=== PATIENT | female | born 1985 | race Caucasian/White ===

== ENCOUNTER 2016-02-13 16:06 | Emergency (ER) | payer OTHER ==
[2016-02-13] MEDS ORDERED: IBUPROFEN 600 MG TAB PO STA (17:14)
[2016-02-13] MEDS ORDERED: PHENAZOPYRIDINE 200 MG TAB PO STA (17:14)
--- NOTE | 2016-02-13 17:31 | ED ---
Female Urogenital HPI - General Chief complaint: Urogenital Stated complaint: Poss UTI Time Seen by Provider: 02/13/16 17:09 Source: patient, RN notes reviewed Mode of arrival: ambulatory Limitations: no limitations - History of Present Illness Initial comments: 31-year-old female presents to emergency room chief complaint of dysuria. Patient states she's had this for the past 2 days. Please send that she urinates she has pain. Patient states she has noticed some blood in the urine. Patient admits to history case and specifically feel like that. Patient states she has some bilateral low back pain which have any high flank pain or nausea vomiting. Patient states she has had a decreased appetite when the pain started. Patient states it feels different than her kidney stones. Patient denies any vaginal discharge. Patient states that she was concerned due to the pain and discomfort so she thought that she should be seen. Patient denies any recent fever, chills, shortness of breath, chest pain, back pain, abdominal pain , nausea vomiting, numbness or tingling, constipation or diarrhea, headaches or visual changes, or any other current symptoms. Last Menstrual Period: 01/26/16 - Related Data Home Medications Medication Instructions Recorded Confirmed OXcarbazepine [Trileptal] 600 mg PO BID 03/01/15 02/13/16 traZODone HCL [Desyrel] 100 mg PO HS 05/02/15 02/13/16 hydrOXYzine PAMOATE [Vistaril] 100 mg PO BID 02/13/16 02/13/16 Previous Rx's Medication Instructions Recorded Ciprofloxacin HCl [Cipro] 500 mg PO Q12HR #14 tablet 02/13/16 Ibuprofen [Motrin] 600 mg PO Q6HR PRN #20 tab 02/13/16 Phenazopyridine HCl [Pyridium] 100 mg PO TID 3 Days 02/13/16 Allergies Allergy/AdvReac Type Severity Reaction Status Date / Time Bleach (Sodium Hypochlorite) Allergy Rash/Hives Verified 02/13/16 17:18 milk Allergy Unknown Verified 02/13/16 17:18 Review of Systems ROS Statement: Those systems with pertinent positive or pertinent negative responses have been documented in the HPI. ROS Other: All systems not noted in ROS Statement are negative. Past Medical History Past Medical History: GERD/Reflux Additional Past Medical History / Comment(s): murmur, RA, back pain History of Any Multi-Drug Resistant Organisms: None Reported Past Surgical History: Adenoidectomy, Tonsillectomy, Tubal Ligation Additional Past Surgical History / Comment(s): oopherectomy Past Psychological History: Anxiety, Bipolar, Depression Smoking Status: Current every day smoker Past Alcohol Use History: Occasional Past Drug Use History: Marijuana General Exam Limitations: no limitations General appearance: alert, in no apparent distress Head exam: Present: atraumatic, normocephalic, normal inspection Eye exam: Present: normal appearance, PERRL, EOMI. Absent: scleral icterus, conjunctival injection, periorbital swelling ENT exam: Present: normal exam, mucous membranes moist Neck exam: Present: normal inspection. Absent: tenderness, meningismus, lymphadenopathy Respiratory exam: Present: normal lung sounds bilaterally. Absent: respiratory distress, wheezes, rales, rhonchi, stridor Cardiovascular Exam: Present: regular rate, normal rhythm, normal heart sounds. Absent: systolic murmur, diastolic murmur, rubs, gallop, clicks GI/Abdominal exam: Present: soft, tenderness (Over the suprapubic area), normal bowel sounds, other (no CVA tenderness). Absent: distended, guarding, rebound, rigid, organomegaly, mass, bruit, pulsatile mass, hernia Neurological exam: Present: alert, oriented X3, CN II-XII intact. Absent: motor sensory deficit Psychiatric exam: Present: normal affect, normal mood Skin exam: Present: warm, dry, intact, normal color. Absent: rash Course Vital Signs 02/13/16 16:18 Temperature 98.0 F Pulse Rate 70 Respiratory 18 Rate Blood Pressure 123/70 O2 Sat by Pulse 98 Oximetry Medical Decision Making - Medical Decision Making 31-year-old female presents emergency Department chief complaint of dysuria. At this time patient's CAT scan is reviewed that does not show any ureteral calculi. Patient's urine does have white cells as well as red blood cells. At this time we will treat the patient for UTI. At this time we discussed that we' ll put her on medication for the UTI. We did discuss that she has a history of stones and certainly stone however there could be a stone that we do not see the importance of following up and when to return the emergency department if this is the case. Patient stated that she understood all questions were answered. She will be discharged home. - Lab Data Result diagrams: 02/13/16 17:51 02/13/16 17:51 Lab Results 02/13/16 02/13/16 02/13/16 Range/Units 17:25 17:25 17:51 WBC 7.9 (3.8-10.6) k/uL RBC 4.25 (3.80-5.40) m/uL Hgb 13.3 (11.4-16.0) gm/dL Hct 40.6 (34.0-46.0) % MCV 95.6 (80.0-100.0) fL MCH 31.3 (25.0-35.0) pg MCHC 32.8 (31.0-37.0) g/dL RDW 12.7 (11.5-15.5) % Plt Count 290 (150-450) k/uL Neutrophils % 64 % Lymphocytes % 24 % Monocytes % 6 % Eosinophils % 3 % Basophils % 1 % Neutrophils # 5.1 (1.3-7.7) k/uL Lymphocytes # 1.9 (1.0-4.8) k/uL Monocytes # 0.5 (0-1.0) k/uL Eosinophils # 0.2 (0-0.7) k/uL Basophils # 0.1 (0-0.2) k/uL Sodium (137-145) mmol/L Potassium (3.5-5.1) mmol/L Chloride (98-107) mmol/L Carbon Dioxide (22-30) mmol/L Anion Gap mmol/L BUN (7-17) mg/dL Creatinine (0.52-1.04) mg/dL Est GFR (MDRD) Af Amer (>60 ml/min/1.73 sqM) Est GFR (MDRD) Non-Af (>60 ml/min/1.73 sqM) Glucose (74-99) mg/dL Calcium (8.4-10.2) mg/dL Total Bilirubin (0.2-1.3) mg/dL AST (14-36) U/L ALT (9-52) U/L Alkaline Phosphatase (38-126) U/L Total Protein (6.3-8.2) g/dL Albumin (3.5-5.0) g/dL Urine Color Yellow Urine Appearance Clear (Clear) Urine pH 5.5 (5.0-8.0) Ur Specific [place] 1.023 (1.001-1.035) Urine Protein Trace H (Negative) Urine Glucose (UA) Negative (Negative) Urine Ketones Trace H (Negative) Urine Blood Moderate H (Negative) Urine Nitrate Negative (Negative) Urine Bilirubin Negative (Negative) Urine Urobilinogen 2.0 (<2.0) mg/dL Ur Leukocyte Esterase Trace H (Negative) Urine RBC 107 H (0-5) /hpf Urine WBC 13 H (0-5) /hpf Ur Squamous Epith Cells 3 (0-4) /hpf Urine Bacteria Rare H (None) /hpf Urine Mucus Occasional H (None) /hpf Urine HCG, Qual Not Detected (Not Detectd) 02/13/16 Range/Units 17:51 WBC (3.8-10.6) k/uL RBC (3.80-5.40) m/uL Hgb (11.4-16.0) gm/dL Hct (34.0-46.0) % MCV (80.0-100.0) fL MCH (25.0-35.0) pg MCHC (31.0-37.0) g/dL RDW (11.5-15.5) % Plt Count (150-450) k/uL Neutrophils % % Lymphocytes % % Monocytes % % Eosinophils % % Basophils % % Neutrophils # (1.3-7.7) k/uL Lymphocytes # (1.0-4.8) k/uL Monocytes # (0-1.0) k/uL Eosinophils # (0-0.7) k/uL Basophils # (0-0.2) k/uL Sodium 142 (137-145) mmol/L Potassium 4.4 (3.5-5.1) mmol/L Chloride 105 (98-107) mmol/L Carbon Dioxide 30 (22-30) mmol/L Anion Gap 7 mmol/L BUN 10 (7-17) mg/dL Creatinine 1.00 (0.52-1.04) mg/dL Est GFR (MDRD) Af Amer >60 (>60 ml/min/1.73 sqM) Est GFR (MDRD) Non-Af >60 (>60 ml/min/1.73 sqM) Glucose 91 (74-99) mg/dL Calcium 8.9 (8.4-10.2) mg/dL Total Bilirubin 0.3 (0.2-1.3) mg/dL AST 14 (14-36) U/L ALT 20 (9-52) U/L Alkaline Phosphatase 76 (38-126) U/L Total Protein 6.2 L (6.3-8.2) g/dL Albumin 3.6 (3.5-5.0) g/dL Urine Color Urine Appearance (Clear) Urine pH (5.0-8.0) Ur Specific [place] (1.001-1.035) Urine Protein (Negative) Urine Glucose (UA) (Negative) Urine Ketones (Negative) Urine Blood (Negative) Urine Nitrate (Negative) Urine Bilirubin (Negative) Urine Urobilinogen (<2.0) mg/dL Ur Leukocyte Esterase (Negative) Urine RBC (0-5) /hpf Urine WBC (0-5) /hpf Ur Squamous Epith Cells (0-4) /hpf Urine Bacteria (None) /hpf Urine Mucus (None) /hpf Urine HCG, Qual (Not Detectd) - Radiology Data Radiology results: report reviewed, image reviewed Disposition Clinical Impression: Urinary tract infection Disposition: HOME SELF-CARE Condition: Stable Instructions: Urinary Tract Infection in Women (ED) Additional Instructions: Please use medication as discussed. Please follow up with family doctor if symptoms have not improved over the next two days. Please return to the emergency room if your symptoms increase or worsen or for any other concerns. Prescriptions: Ciprofloxacin HCl [Cipro] 500 mg PO Q12HR #14 tablet Ibuprofen [Motrin] 600 mg PO Q6HR PRN #20 tab PRN Reason: Pain Phenazopyridine HCl [Pyridium] 100 mg PO TID 3 Days Referrals: Hal Banks MD [Primary Care Provider] - 1-2 days Time of Disposition: 18:42
[2016-02-13 17:37] LABS: Appearance,Urine Clear (Clear); Bacteria,Urine Rare /hpf; Bilirubin,Urine Negative (Negative); Glucose,Urine (UA) Negative (Negative); Ketones,Urine Trace (Negative); Leukocyte Esterase,Urine Trace (Negative); Mucus,Urine Occasional /hpf; Nitrite,Urine Negative (Negative); PH, Urine 5.5 (5.0-8.0); Particle Count 4595; Protein,Urine Trace (Negative); RBC,Urine 107 /hpf (0-5); Specific Gravity,Urine 1.023 (1.001-1.035); Squamous Epithelial Cell,Urine 3 /hpf (0-4); UA Billing (MACRO vs. MICRO) MICRO; WBC,Urine 13 /hpf (0-5)
[2016-02-13] MEDS ORDERED: SODIUM CHLORIDE 0.9% 1,000 ML IV STA (17:39)
[2016-02-13 18:06] LABS: Basophils # (A) 0.1 k/uL (0-0.2); Basophils % (A) 1 %; CH 31.8; CHCM 33.4; Eosinophils # (A) 0.2 k/uL (0-0.7); Eosinophils % (A) 3 %; HCT 40.6 % (34.0-46.0); HDW 2.13; HGB 13.3 gm/dL (11.4-16.0); Luc # (Auto) 0.12; Luc % (Auto) 2; Lymphocytes # (A) 1.9 k/uL (1.0-4.8); Lymphocytes % (A) 24 %; MCH 31.3 pg (25.0-35.0); MCHC 32.8 g/dL (31.0-37.0); MCV 95.6 fL (80.0-100.0); Mean Platelet Volume 8.2; Monocytes # (A) 0.5 k/uL (0-1.0); Monocytes % (A) 6 %; Neutrophils # (A) 5.1 k/uL (1.3-7.7); Neutrophils % (A) 64 %; RBC 4.25 m/uL (3.80-5.40); RDW 12.7 % (11.5-15.5); WBC 7.9 k/uL (3.8-10.6); WBC (Perox) 8.04
[2016-02-13 18:21] LABS: ALT 20 U/L (9-52); AST 14 U/L (14-36); Alkaline Phosphatase 76 U/L (38-126); Anion Gap 7 mmol/L; Blood Urea Nitrogen 10 mg/dL (7-17); Calcium 8.9 mg/dL (8.4-10.2); Carbon Dioxide 30 mmol/L (22-30); Chloride 105 mmol/L (98-107); Glucose 91 mg/dL (74-99); Non-African American GFR(MDRD) >60 (>60 ml/min/1.73 sqM); Potassium 4.4 mmol/L (3.5-5.1); Sodium 142 mmol/L (137-145); Total Bilirubin 0.3 mg/dL (0.2-1.3); Total Protein 6.2 g/dL (6.3-8.2)
--- NOTE | 2016-02-13 18:30 | CT ---
EXAMINATION TYPE: CT abdomen pelvis wo con DATE OF EXAM: 02/13/2016 6:16 PM COMPARISON: 06/29/2014 HISTORY: Pain with urination and hematuria. CT DLP: 367.90 mGycm Automated exposure control for dose reduction was used. TECHNIQUE: Helical acquisition of images was performed from the lung bases through the pelvis. FINDINGS: Lung bases are clear of consolidation. There is no pleural effusion. Heart size is normal. The liver spleen pancreas and gallbladder appear normal. Bile ducts are not dilated. There is no adre nal mass. There is a 7 mm calculus in the upper pole left kidney. There is a 1 cm calculus in the int erpolar right kidney. Ureters do not appear dilated. There is no retroperitoneal adenopathy. There is no ascites. I see no intestinal wall thickening. There are no dilated loops. Bony structures are int act. I see no pelvic mass. Bladder is almost empty. Uterus is anteverted. IMPRESSION: Bilateral renal calculi. No evidence of obstruction. Appendix not definitely seen. There is no sign o f appendicitis. There is clearing of the left-sided hydronephrosis compared to old exam.
[2016-02-13 19:06] VITALS: BP 112/61; PULSE 66; RESP 16; TEMP 97.3
== END 2016-02-13 19:05 | disposition home or self-care (01) ==
LOC: EC 16:06
DX: N39.0 Urinary tract infection, site not specified (principal); F31.9 Bipolar disorder, unspecified; F41.9 Anxiety disorder, unspecified; Z79.899 Other long term (current) drug therapy; F17.200 Nicotine dependence, unspecified, uncomplicated; Z87.442 Personal history of urinary calculi
CPT/HCPCS: 36415; 80053; 85025; 81001; 81025; 87086; 74176; 99284; 96365; 96361; J0696

== ENCOUNTER 2016-05-08 16:07 | Emergency (ER) | payer OTHER ==
[2016-05-08 16:38] VITALS: RESP 18; TEMP 97.7
[2016-05-08] MEDS ORDERED: AZITHROMYCIN 500 MG TAB PO STA (18:41)
[2016-05-08] MEDS ORDERED: cefTRIAXone 250 MG VIAL IM STA (18:41)
--- NOTE | 2016-05-08 18:44 | ED ---
Female Urogenital HPI - General Chief complaint: Urogenital Stated complaint: FEMALE , SHAKING, POSS HYPERGLYCEMIA Time Seen by Provider: 05/08/16 18:25 Source: patient Mode of arrival: ambulatory - History of Present Illness Initial comments: A 31-year-old female patient presents to emergency department today complaints of genital itching, vaginal discharge, and concerns of possibly having a retained tampon. Patient states her period ended a couple days ago and she was intoxicated and is not sure if she removed her tampon. Patient states for the last couple of days she has been having increased itching and vaginal discharge. Patient is requesting STD testing, she just recently broke up with her boyfriend and is unsure if he was monogamous. Patient denies any abdominal pain or back pain. Denies any fever or chills. Patient denies any headache, dizziness, weakness, chest pain, shortness of breath, nausea, vomiting, dysuria , hematuria, urinary urgency, urinary frequency. Last Menstrual Period: 05/05/16 - Related Data Home Medications Medication Instructions Recorded Confirmed OXcarbazepine [Trileptal] 600 mg PO BID 03/01/15 02/13/16 traZODone HCL [Desyrel] 100 mg PO HS 05/02/15 02/13/16 hydrOXYzine PAMOATE [Vistaril] 100 mg PO BID 02/13/16 02/13/16 Previous Rx's Medication Instructions Recorded Ciprofloxacin HCl [Cipro] 500 mg PO Q12HR #14 tablet 02/13/16 Ibuprofen [Motrin] 600 mg PO Q6HR PRN #20 tab 02/13/16 Phenazopyridine HCl [Pyridium] 100 mg PO TID 3 Days 02/13/16 Allergies Allergy/AdvReac Type Severity Reaction Status Date / Time Bleach (Sodium Hypochlorite) Allergy Rash/Hives Verified 05/08/16 16:38 milk Allergy Unknown Verified 05/08/16 16:38 Review of Systems ROS Statement: Those systems with pertinent positive or pertinent negative responses have been documented in the HPI. ROS Other: All systems not noted in ROS Statement are negative. Past Medical History Past Medical History: GERD/Reflux Additional Past Medical History / Comment(s): murmur, RA, back pain History of Any Multi-Drug Resistant Organisms: None Reported Past Surgical History: Adenoidectomy, Tonsillectomy, Tubal Ligation Additional Past Surgical History / Comment(s): oopherectomy, facial reconstruction Past Psychological History: Anxiety, Bipolar, Depression Smoking Status: Current every day smoker Past Alcohol Use History: Occasional Past Drug Use History: Marijuana General Exam General appearance: alert, in no apparent distress Head exam: Present: atraumatic, normocephalic, normal inspection Eye exam: Present: normal appearance, PERRL, EOMI. Absent: scleral icterus, conjunctival injection, periorbital swelling ENT exam: Present: normal exam, normal oropharynx, mucous membranes moist Neck exam: Present: normal inspection. Absent: tenderness, meningismus, lymphadenopathy Respiratory exam: Present: normal lung sounds bilaterally. Absent: respiratory distress, wheezes, rales, rhonchi, stridor Cardiovascular Exam: Present: regular rate, normal rhythm, normal heart sounds. Absent: systolic murmur, diastolic murmur, rubs, gallop, clicks GI/Abdominal exam: Present: soft, normal bowel sounds. Absent: distended, tenderness, guarding, rebound, rigid External exam: Present: normal external exam. Absent: erythema, swelling, lesions, lacerations, ecchymosis Speculum exam: Present: erythema, vaginal discharge (Yellow). Absent: normal speculum exam, vaginal bleeding, foreign body, tissue, laceration By manual exam: Present: cervical motion tenderness, adnexal tenderness (Right) . Absent: normal by manual exam, adnexal mass, uterine enlargement, uterine tenderness Extremities exam: Present: normal inspection, full ROM, normal capillary refill. Absent: tenderness, pedal edema, joint swelling, calf tenderness Back exam: Present: normal inspection. Absent: CVA tenderness (R), CVA tenderness (L) Neurological exam: Present: alert, oriented X3, CN II-XII intact Psychiatric exam: Present: normal affect, normal mood Skin exam: Present: warm, dry, intact, normal color. Absent: rash Course Vital Signs 05/08/16 16:34 Temperature 97.7 F Pulse Rate 94 Respiratory 18 Rate Blood Pressure 146/70 O2 Sat by Pulse 99 Oximetry Medical Decision Making - Medical Decision Making 1-year-old female patient presents to emergency department today with complaints of vaginal itching, concerns of retained by, and requesting STD testing. Pelvic exam is performed, patient exhibited some cervical erythema, cervical motion tenderness, and vaginal discharge. Swabs were obtained and sent for culture. Patient will be given IM Rocephin as well as by mouth azithromycin 1 g. She was offered HIV testing here in the emergency department and refused. Patient be discharged home with instructions to follow-up with her primary care physician for any continued symptoms. Instructed to return for any worsening, new, or concerning symptoms. Patient verbalizes understanding agrees with this plan. Disposition Clinical Impression: Cervicitis Disposition: HOME SELF-CARE Condition: Stable Instructions: Cervicitis (ED), Sexually Transmitted Diseases (ED), Safe Sex (ED ) Additional Instructions: Follow-up with primary care physician in one to 2 days for recheck. Return for any worsening, new, or concerning symptoms. Await culture results. Referrals: Hal Banks MD [Primary Care Provider] - 1-2 days Time of Disposition: 18:44
[2016-05-08 19:20] VITALS: BP 123/63; PULSE 79
[2016-05-11 09:45] LABS: Chlamydia/GC Source Vaginal
== END 2016-05-08 19:21 | disposition home or self-care (01) ==
LOC: EC 16:07
DX: N72 Inflammatory disease of cervix uteri (principal); R25.8 Other abnormal involuntary movements; F31.9 Bipolar disorder, unspecified; F41.9 Anxiety disorder, unspecified; F17.200 Nicotine dependence, unspecified, uncomplicated; Z79.899 Other long term (current) drug therapy; Z91.011 Allergy to milk products; Z91.048 Other nonmedicinal substance allergy status; Z98.51 Tubal ligation status
CPT/HCPCS: 99283; 96372; 87591; 87491; 87808; 87070; J0696; 87205

== ENCOUNTER 2017-05-25 11:50 | Emergency (ER) | payer OTHER ==
[2017-05-25 12:00] VITALS: RESP 18
[2017-05-25] MEDS ORDERED: IBUPROFEN 600 MG TAB PO STA (12:24)
--- NOTE | 2017-05-25 12:34 | XR ---
Right hand HISTORY: Painful lump fourth metacarpal, numbness in right hand 3 views of the right hand No comparisons Bone mineralization, joint spaces and alignment are maintained. No radiopaque foreign body evident. N o periostitis. Soft tissue mass is not identified with certainty. IMPRESSION: No significant abnormality evident. Consider hand MRI.
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
[2017-05-25 13:19] VITALS: BP 105/61; PULSE 66; TEMP 98.2
== END 2017-05-25 13:17 | disposition home or self-care (01) ==
LOC: EC 11:50
DX: M79.641 Pain in right hand (principal); R22.31 Localized swelling, mass and lump, right upper limb; F17.200 Nicotine dependence, unspecified, uncomplicated; Z91.011 Allergy to milk products; Z91.048 Other nonmedicinal substance allergy status
CPT/HCPCS: 99283

== ENCOUNTER 2017-06-11 10:00 | Emergency (ER) | payer OTHER ==
[2017-06-11 10:43] VITALS: BP 108/57
[2017-06-11] MEDS ORDERED: ONDANSETRON 4 MG/2 ML VIAL IVP STA (10:58)
[2017-06-11] MEDS ORDERED: MORPHINE SULFATE 4 MG/ML SYRINGE IVP STA ×2 (10:58→14:50)
[2017-06-11] MEDS ORDERED: SODIUM CHLORIDE 0.9% 500 ML IV STA (10:58)
[2017-06-11] MEDS ORDERED: SODIUM CHLORIDE 0.9% 1,000 ML IV STA ×2 (10:58)
[2017-06-11] MEDS ORDERED: LORazepam 2 MG/ML INJ IV STA (10:58)
[2017-06-11 11:33] LABS: Basophils % (A) 0 %; Eosinophils # (A) 0.3 k/uL (0-0.7); Eosinophils % (A) 2 %; HCT 40.6 % (34.0-46.0); HGB 14.2 gm/dL (11.4-16.0); Lymphocytes # (A) 1.3 k/uL (1.0-4.8); Lymphocytes % (A) 9 %; MCH 31.3 pg (25.0-35.0); MCV 89.6 fL (80.0-100.0); Monocytes # (A) 0.4 k/uL (0-1.0); Monocytes % (A) 3 %; Neutrophils # (A) 12.2 k/uL (1.3-7.7); Neutrophils % (A) 85 %; Platelet Count 301 k/uL (150-450); RBC 4.53 m/uL (3.80-5.40); RDW 12.2 % (11.5-15.5); WBC 14.4 k/uL (3.8-10.6)
[2017-06-11 11:49] LABS: ALT 21 U/L (9-52); AST 21 U/L (14-36); Albumin 4.4 g/dL (3.5-5.0); Alkaline Phosphatase 75 U/L (38-126); Anion Gap 15 mmol/L; Blood Urea Nitrogen 12 mg/dL (7-17); Calcium 9.7 mg/dL (8.4-10.2); Carbon Dioxide 21 mmol/L (22-30); Chloride 106 mmol/L (98-107); Glucose 115 mg/dL (74-99); Magnesium 1.7 mg/dL (1.6-2.3); Potassium 3.7 mmol/L (3.5-5.1); Sodium 142 mmol/L (137-145); Total Bilirubin 0.7 mg/dL (0.2-1.3); Total Protein 7.2 g/dL (6.3-8.2)
[2017-06-11 12:00] LABS: Creatine Kinase 135 U/L (30-135); Phosphorus 1.2 mg/dL (2.5-4.5)
[2017-06-11 12:13] LABS: Creatine Kinase MB 1.2 ng/mL (0.0-2.4); Troponin I <0.012 ng/mL (0.000-0.034)
--- NOTE | 2017-06-11 12:22 | ED ---
General Adult HPI - General Chief complaint: Nausea/Vomiting/Diarrhea Stated complaint: Vomiting Time Seen by Provider: 06/11/17 10:37 Source: patient, RN notes reviewed, old records reviewed Mode of arrival: wheelchair Limitations: no limitations - History of Present Illness Initial comments: This is a 32-year-old female the ER for evaluation. Patient is ER in mild distress secondary is active vomiting. Patient is and denies any significant medical history, denies taking any significant medications. States she has abdominal pain. She's had this episode before unsure of those cause. Denies drugs rel call. Again takes no medications no fevers no recent travel history no sick contacts no diarrhea. Abdominal pain is epigastric, she states she states that she does take Prilosec at home that has not been working lately. Denies fever - Related Data Home Medications Medication Instructions Recorded Confirmed No Known Home Medications [No 06/11/17 06/11/17 Known Home Medications] Allergies Allergy/AdvReac Type Severity Reaction Status Date / Time Bleach (Sodium Hypochlorite) Allergy Rash/Hives Verified 06/11/17 10:59 milk Allergy Unknown Verified 06/11/17 10:59 Review of Systems ROS Statement: Those systems with pertinent positive or pertinent negative responses have been documented in the HPI. ROS Other: All systems not noted in ROS Statement are negative. Past Medical History Past Medical History: GERD/Reflux Additional Past Medical History / Comment(s): murmur, RA, back pain, LOW VITAMIN D, LOW BLOOD SUGAR History of Any Multi-Drug Resistant Organisms: None Reported Past Surgical History: Adenoidectomy, Tonsillectomy, Tubal Ligation Additional Past Surgical History / Comment(s): oopherectomy, facial reconstruction Past Psychological History: Anxiety, Bipolar, Depression Smoking Status: Current every day smoker Past Alcohol Use History: Occasional Past Drug Use History: Marijuana General Exam Limitations: no limitations General appearance: alert, in no apparent distress, anxious Head exam: Present: atraumatic, normocephalic, normal inspection Eye exam: Present: normal appearance, PERRL, EOMI. Absent: scleral icterus, conjunctival injection, periorbital swelling ENT exam: Present: normal exam, mucous membranes moist Neck exam: Present: normal inspection. Absent: tenderness, meningismus, lymphadenopathy Respiratory exam: Present: normal lung sounds bilaterally. Absent: respiratory distress, wheezes, rales, rhonchi, stridor Cardiovascular Exam: Present: regular rate, normal rhythm, normal heart sounds. Absent: systolic murmur, diastolic murmur, rubs, gallop, clicks GI/Abdominal exam: Present: soft, normal bowel sounds. Absent: distended, tenderness, guarding, rebound, rigid Extremities exam: Present: normal inspection, full ROM, normal capillary refill. Absent: tenderness, pedal edema, joint swelling, calf tenderness Back exam: Present: normal inspection Neurological exam: Present: alert, oriented X3, CN II-XII intact Psychiatric exam: Present: normal affect, normal mood Skin exam: Present: warm, dry, intact, normal color. Absent: rash Course Vital Signs 06/11/17 06/11/17 10:41 15:13 Temperature 98.2 F 98.1 F Pulse Rate 104 H 66 Respiratory 16 20 Rate Blood Pressure 108/57 108/57 O2 Sat by Pulse 99 96 Oximetry - Reevaluation(s) Reevaluation #1: 06/11/17 15:29 Patient multiple medications are negative EKG Findings - EKG Comments: EKG Findings:: EKG shows sinus bradycardia rate of 59, WI 134, QRS 100, QTC 493 Medical Decision Making - Medical Decision Making 32 female the ER for evaluation. Patient to be discharged home with nausea control, no significant findings or symptoms - Lab Data Result diagrams: 06/11/17 11:19 06/11/17 11:19 Lab Results 06/11/17 06/11/17 06/11/17 Range/Units 11:19 11:19 11:19 WBC 14.4 H (3.8-10.6) k/uL RBC 4.53 (3.80-5.40) m/uL Hgb 14.2 (11.4-16.0) gm/dL Hct 40.6 (34.0-46.0) % MCV 89.6 (80.0-100.0) fL MCH 31.3 (25.0-35.0) pg MCHC 35.0 (31.0-37.0) g/dL RDW 12.2 (11.5-15.5) % Plt Count 301 (150-450) k/uL Neutrophils % 85 % Lymphocytes % 9 % Monocytes % 3 % Eosinophils % 2 % Basophils % 0 % Neutrophils # 12.2 H (1.3-7.7) k/uL Lymphocytes # 1.3 (1.0-4.8) k/uL Monocytes # 0.4 (0-1.0) k/uL Eosinophils # 0.3 (0-0.7) k/uL Basophils # 0.0 (0-0.2) k/uL Sodium 142 (137-145) mmol/L Potassium 3.7 (3.5-5.1) mmol/L Chloride 106 (98-107) mmol/L Carbon Dioxide 21 L (22-30) mmol/L Anion Gap 15 mmol/L BUN 12 (7-17) mg/dL Creatinine 0.66 (0.52-1.04) mg/dL Est GFR (CKD-EPI)AfAm >90 (>60 ml/min/1.73 sqM) Est GFR (CKD-EPI)NonAf >90 (>60 ml/min/1.73 sqM) Glucose 115 H (74-99) mg/dL Plasma Lactic Acid Bala (0.7-2.0) mmol/L Calcium 9.7 (8.4-10.2) mg/dL Phosphorus 1.2 L* (2.5-4.5) mg/dL Magnesium 1.7 (1.6-2.3) mg/dL Total Bilirubin 0.7 (0.2-1.3) mg/dL AST 21 (14-36) U/L ALT 21 (9-52) U/L Alkaline Phosphatase 75 (38-126) U/L Total Creatine Kinase 135 (30-135) U/L CK-MB (CK-2) 1.2 (0.0-2.4) ng/mL CK-MB (CK-2) Rel Index 0.9 Troponin I <0.012 (0.000-0.034) ng/mL Total Protein 7.2 (6.3-8.2) g/dL Albumin 4.4 (3.5-5.0) g/dL TSH (0.465-4.680) mIU/L 06/11/17 06/11/17 Range/Units 11:19 11:19 WBC (3.8-10.6) k/uL RBC (3.80-5.40) m/uL Hgb (11.4-16.0) gm/dL Hct (34.0-46.0) % MCV (80.0-100.0) fL MCH (25.0-35.0) pg MCHC (31.0-37.0) g/dL RDW (11.5-15.5) % Plt Count (150-450) k/uL Neutrophils % % Lymphocytes % % Monocytes % % Eosinophils % % Basophils % % Neutrophils # (1.3-7.7) k/uL Lymphocytes # (1.0-4.8) k/uL Monocytes # (0-1.0) k/uL Eosinophils # (0-0.7) k/uL Basophils # (0-0.2) k/uL Sodium (137-145) mmol/L Potassium (3.5-5.1) mmol/L Chloride (98-107) mmol/L Carbon Dioxide (22-30) mmol/L Anion Gap mmol/L BUN (7-17) mg/dL Creatinine (0.52-1.04) mg/dL Est GFR (CKD-EPI)AfAm (>60 ml/min/1.73 sqM) Est GFR (CKD-EPI)NonAf (>60 ml/min/1.73 sqM) Glucose (74-99) mg/dL Plasma Lactic Acid [place]ala 1.8 (0.7-2.0) mmol/L Calcium (8.4-10.2) mg/dL Phosphorus (2.5-4.5) mg/dL Magnesium (1.6-2.3) mg/dL Total Bilirubin (0.2-1.3) mg/dL AST (14-36) U/L ALT (9-52) U/L Alkaline Phosphatase (38-126) U/L Total Creatine Kinase (30-135) U/L CK-MB (CK-2) (0.0-2.4) ng/mL CK-MB (CK-2) Rel Index Troponin I (0.000-0.034) ng/mL Total Protein (6.3-8.2) g/dL Albumin (3.5-5.0) g/dL TSH 1.040 (0.465-4.680) mIU/L - Radiology Data Radiology results: report reviewed (Ultrasound gallbladder CT abdomen and pelvis negative), image reviewed Disposition Clinical Impression: Nausea and vomiting Disposition: HOME SELF-CARE Condition: Fair Instructions: Acute Nausea and Vomiting (ED) Is patient prescribed a controlled substance at d/c from ED?: No Referrals: None,Stated [Primary Care Provider] - 1-2 days
--- NOTE | 2017-06-11 13:25 | US ---
EXAMINATION TYPE: US gallbladder DATE OF EXAM: 06/11/2017 COMPARISON: NONE CLINICAL HISTORY: Pain. Abdominal pain for months. Vomiting and diarrhea today. History of kidney sto cachorro EXAM MEASUREMENTS: Liver Length: 17.1 cm Gallbladder Wall: 0.2 cm CBD: 0.2 cm Right Kidney: 11.6 x 4.0 x 5.7 cm Pancreas: visualized portions appear wnl Liver: appears wnl Gallbladder: no evidence of stones, only visualized supine, patient unable to rotate into LLD positi on Evidence for sonographic Ramirez's sign: no CBD: appears wnl Right Kidney: stone mid= 0.8cm IMPRESSION: 1. Nonobstructing calculus right kidney.
[2017-06-11] MEDS ORDERED: RX INFO: IV CONTRAST WAS GIVEN 1 EACH MISC MISCELLANE PRN (13:32)
[2017-06-11] MEDS ORDERED: KETOROLAC 30 MG/ML 1 ML VIAL IVP STA (14:50)
[2017-06-11] MEDS ORDERED: METOCLOPRAMIDE 5 MG/ML 2 ML VIAL IVP STA (14:50)
[2017-06-11] MEDS ORDERED: diphenhydrAMINE 50 MG/ML 1 ML VIAL IVP STA (14:50)
--- NOTE | 2017-06-11 14:55 | CT ---
EXAMINATION TYPE: CT abdomen pelvis w con DATE OF EXAM: 06/11/2017 HISTORY: Patient uncooperative during exam. Patient poor historian. Pain. CT DLP: 678.5mGycm Automated Exposure Control for Dose Reduction was Utilized. CONTRAST: CT scan of the abdomen and pelvis is performed without oral but with IV Contrast, patient injected wi th 100 mL of Isovue 300. COMPARISON: CT abdomen and pelvis February 13, 2016. FINDINGS: LUNG BASES: No significant abnormality is appreciated. LIVER/GB: Some mild to moderate periportal edema is now present which is nonspecific finding. PANCREAS: No significant abnormality is seen. SPLEEN: No significant abnormality is seen. ADRENALS: No significant abnormality is seen. KIDNEYS: There is persistent 5 mm calculus mid pole level right kidney axial image [address] able. There is symmetric cortical medullary uptake and excretion from both kidneys without evidence o f hydronephrosis bilaterally. BOWEL: Evaluation bowel is suboptimal secondary to lack of enteric contrast. There is no suspicious s mall or large bowel dilatation. UTERUS/ADNEXA: Anteverted uterus is seen. There is no abnormal lesion in the left adnexa or ovary christian t contains calcification superiorly axial image 60 and fat and soft tissue density consistent with te ratoma measuring approximately 2.5 x 2.2 cm axial image 61. There is right-sided pelvic phlebolith. LYMPH NODES: No greater than 1cm abdominal or pelvic lymph nodes are appreciated. OSSEOUS STRUCTURES: Mild to moderate disc space narrowing at lumbosacral junction is present. There i s multilevel mild facet arthropathy in the lower lumbar spine. OTHER: No significant additional abnormality is seen. IMPRESSION: No significant acute finding is seen to account for patient's clinical symptoms of nonspe cific pain. No bowel obstruction is seen. Stable nonobstructing right-sided renal calculus. 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 OB gynecology follow-up advised.
[2017-06-11 15:14] VITALS: PULSE 66; RESP 20; TEMP 98.1
== END 2017-06-11 15:54 | disposition home or self-care (01) ==
LOC: EC 10:00
DX: R11.2 Nausea with vomiting, unspecified (principal); R10.13 Epigastric pain; F17.200 Nicotine dependence, unspecified, uncomplicated; Z91.011 Allergy to milk products; Z91.09 Other allergy status, other than to drugs and biological substances
CPT/HCPCS: 36415; 93005; 80053; 84443; 82550; 82553; 83605; 83735; 84100; 84484; 85025; 83970; 76705; 74177; 99285; 96374; 96375 ×5; 96376; 96361 ×2; J2060; J2270; J1200; J2765; J2405; J1885; Q9967

== ENCOUNTER 2018-03-08 06:26 | Emergency (ER) | payer OTHER ==
[2018-03-08 06:30] VITALS: RESP 18
--- NOTE | 2018-03-08 07:38 | ED ---
General Adult HPI - General Chief complaint: Skin/Abscess/Foreign Body Stated complaint: lump in armpit Time Seen by Provider: 03/08/18 07:23 Source: patient, RN notes reviewed Mode of arrival: ambulatory Limitations: no limitations - History of Present Illness Initial comments: Patient 33-year-old female presented to the emergency room today with a chief complaint of an abscess to the right axilla that started 2 days ago. Denies any other complaints. Patient denies any recent fever, chills, shortness of breath, chest pain, back pain, abdominal pain, nausea or vomiting, numbness or tingling, dysuria or hematuria, constipation or diarrhea, headaches or visual changes, or any other complaints. - Related Data Previous Rx's Medication Instructions Recorded Ondansetron Odt [Zofran Odt] 4 mg PO Q8HR PRN #30 tab 06/11/17 Ibuprofen [Motrin] 600 mg PO Q6HR PRN #30 day 03/08/18 Sulfamethox-Tmp 800-160Mg [Bactrim 1 tab PO Q12HR #20 tab 03/08/18 DS 800-160 mg] Allergies Allergy/AdvReac Type Severity Reaction Status Date / Time Bleach (Sodium Hypochlorite) Allergy Rash/Hives Verified 03/08/18 06:30 milk Allergy Unknown Verified 03/08/18 06:30 Review of Systems ROS Statement: Those systems with pertinent positive or pertinent negative responses have been documented in the HPI. ROS Other: All systems not noted in ROS Statement are negative. Past Medical History Past Medical History: GERD/Reflux, Thyroid Disorder Additional Past Medical History / Comment(s): murmur, RA, back pain, LOW VITAMIN D, LOW BLOOD SUGAR, parathyroid tumor History of Any Multi-Drug Resistant Organisms: None Reported Past Surgical History: Adenoidectomy, Tonsillectomy, Tubal Ligation Additional Past Surgical History / Comment(s): oopherectomy, facial reconstruction Past Psychological History: Anxiety, Bipolar, Depression Smoking Status: Current every day smoker Past Alcohol Use History: Occasional Past Drug Use History: Marijuana General Exam - General Exam Comments Initial Comments: General: The patient is awake and alert, in no distress, and does not appear acutely ill. Musculoskeletal: Normal ROM, no tenderness. Neurological: A&O x 3. CN II-XII intact, There are no obvious motor or sensory deficits. Coordination appears grossly intact. Speech is normal. Skin: 2 cm abscess to the right axilla with no drainage. Psychiatric: Cooperative, appropriate mood & affect, normal judgment. Limitations: no limitations Course Vital Signs 03/08/18 06:28 Temperature 97.9 F Pulse Rate 95 Respiratory 18 Rate Blood Pressure 143/88 O2 Sat by Pulse 99 Oximetry Procedures - Procedures Initial comment: Procedure: Incision and drainage The skin overlying the abscess was prepped with Betadine, and anesthetized with 1% lidocaine without epinephrine. A #11 scalpel was then used to incise the abscess. Moderate purulent material was then extracted from the lesion. Gauze dressing placed on top, The patient tolerated the procedure well. Medical Decision Making - Medical Decision Making Patient advised continue warm compresses and use antibiotic as prescribed follow -up the family doctor over the next 2 days return if symptoms increase worsen. Disposition Clinical Impression: Abscess Disposition: HOME SELF-CARE Condition: Good Instructions (If sedation given, give patient instructions): Abscess (ED) Additional Instructions: Please use medication as discussed. Please follow-up with family doctor in the next 2 days of symptoms have not improved. Please return to emergency room if the symptoms increase or worsen or for any other concerns. Prescriptions: Ibuprofen [Motrin] 600 mg PO Q6HR PRN #30 day PRN Reason: Pain Sulfamethox-Tmp 800-160Mg [Bactrim DS 800-160 mg] 1 tab PO Q12HR #20 tab Is patient prescribed a controlled substance at d/c from ED?: No Referrals: None,Stated [Primary Care Provider] - 1-2 days Time of Disposition: 07:57
[2018-03-08 08:21] VITALS: BP 132/75; PULSE 89; TEMP 98
== END 2018-03-08 08:21 | disposition home or self-care (01) ==
LOC: EC 06:26
DX: L02.411 Cutaneous abscess of right axilla (principal); F17.200 Nicotine dependence, unspecified, uncomplicated; Z91.011 Allergy to milk products; Z91.09 Other allergy status, other than to drugs and biological substances
CPT/HCPCS: 10060; 99283

== ENCOUNTER 2018-11-27 03:31 | Emergency (ER) | payer OTHER ==
[2018-11-27 03:49] VITALS: BP 127/73; PULSE 82; TEMP 98.2
--- NOTE | 2018-11-27 03:59 | ED ---
Abdominal Pain HPI - General Chief Complaint: Abdominal Pain Stated Complaint: Nausea Time Seen by Provider: 11/27/18 03:58 Source: patient Mode of arrival: ambulatory Limitations: no limitations - History of Present Illness Initial Comments: Jeri is a 33-year-old female who presents the emergency department today for evaluation of 1 week of bilateral low pelvic pain. Patient reports pain is been constant for about a week but it's been progressively worsening. Tonight she couldn't sleep which prompted her to come to the ER for evaluation. Patient reports that she's had similar pain to this in the past when her calcium has been off due to her parathyroid problem. 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 Patient states she is in a monogamous relationship and has no concern for sexual transmitted infections. Eyes any dysuria or hematur ia. Patient is status post tubal ligation and salpingectomy therefore she has no concern for . - Related Data Home Medications Medication Instructions Recorded Confirmed metroNIDAZOLE [Flagyl] 500 mg PO BID 11/27/18 11/27/18 Allergies Allergy/AdvReac Type Severity Reaction Status Date / Time Bleach (Sodium Hypochlorite) Allergy Rash/Hives Verified 11/27/18 08:13 milk Allergy Unknown Verified 11/27/18 08:13 Review of Systems ROS Statement: Those systems with pertinent positive or pertinent negative responses have been documented in the HPI. ROS Other: All systems not noted in ROS Statement are negative. Past Medical History Past Medical History: GERD/Reflux, Thyroid Disorder Additional Past Medical History / Comment(s): murmur, RA, back pain, LOW VITAMIN D, LOW BLOOD SUGAR, parathyroid tumor History of Any Multi-Drug Resistant Organisms: None Reported Past Surgical History: Adenoidectomy, Tonsillectomy, Tubal Ligation Additional Past Surgical History / Comment(s): oopherectomy, facial recon struction, Past Psychological History: Anxiety, Bipolar, Depression Smoking Status: Current every day smoker Past Alcohol Use History: Occasional Past Drug Use History: Marijuana General Exam - General Exam Comments Initial Comments: Physical Exam GENERAL: Patient is well-developed and well-nourished. Patient is nontoxic and well-hydrated and is in no distress. HENT: Normocephalic, Atraumatic. EYES: PERRL, EOMI PULMONARY: Unlabored respirations. No audible rales rhonchi or wheezing was noted. CARDIOVASCULAR: There is a regular rate and rhythm without any murmurs gallops or rubs. ABDOMEN: Soft and nontender with normal bowel sounds. Minimal tenderness to palpation in the abdomen Non-peritoneal SKIN: Skin is clear with no lesions or rashes and otherwise unremarkable. : Normal external genitalia Minimal physiologic vaginal discharge No cervical motion tenderness, no cervical discharge, no strawberry cervix NEUROLOGIC: Patient is alert and oriented x3. Moving all extremities spontaneously MUSCULOSKELETAL: Normal extremities with adequate strength and full range of motion. No lower extremity swelling or edema. No calf tenderness. PSYCHIATRIC: Normal psychiatric evaluation. Limitations: no limitations Course Vital Signs 11/27/18 11/27/18 03:44 08:43 Temperature 98.2 F Pulse Rate 82 Respiratory 17 20 Rate Blood Pressure 127/73 O2 Sat by Pulse 97 Oximetry Medical Decision Making - Medical Decision Making The patient was seen and evaluated, history is obtained from the patient This is a 33-year-old female with bilateral lower pelvic pain for sexually transmitted infections discharge pelvic exam is relatively unremarkable urinalysis was reviewed labs are reviewed patient with persistent discomfort and a computed tomography scan was ordered which resulted with likely hemorrhagic cyst on the right with minimal free fluid in the abdomen as well as a growing teratoma on the left Patient follows with a dental secretary but does not have established care with a gynecologic surgeon. Patient care was discussed with gynecology on-call Dr Giordano who will see the patient in office this week for further evaluation and discussion of likely surgical management These findings were discussed in detail with the patient. I suspect her pelvic pain is partially due to hemorrhagic ovarian cyst and also likely due to a growing teratoma on her left ovary. In review of her medical record this was in fact diagnosed in June of last year and the patient never followed up. Patient does admit that she also chose not to follow-up on her parathyroid tumor due to fear. I expressed to the patient that it is very important she follow up at this time with gynecology. Patient states that she well. This plan was discussed with her boyfriend as well. Patient eager for discharge home. All questions pertaining care answered return parameters were discussed patient was discharged home in stable condition - Lab Data Result diagrams: 11/27/18 04:26 11/27/18 04:26 Lab Results 11/27/18 11/27/1811/27/19 Range/Units 04:26 04:26 05:37 WBC 9.5 (3.8-10.6) k/uL RBC 4.52 (3.80-5.40) m/uL Hgb 14.2 (11.4-16.0) gm/dL Hct 42.5 (34.0-46.0) % MCV 94.0 (80.0-100.0) fL MCH 31.3 (25.0-35.0) pg MCHC 33.3 (31.0-37.0) g/dL RDW 12.3 (11.5-15.5) % Plt Count 269 (150-450) k/uL Neutrophils % 67 % Lymphocytes % 22 % Monocytes % 7 % Eosinophils % 2 % Basophils % 0 % Neutrophils # 6.4 (1.3-7.7) k/uL Lymphocytes # 2.1 (1.0-4.8) k/uL Monocytes # 0.6 (0-1.0) k/uL Eosinophils # 0.2 (0-0.7) k/uL Basophils # 0.0 (0-0.2) k/uL Sodium 139 (137-145) mmol/L Potassium 3.6 (3.5-5.1) mmol/L Chloride 106 (98-107) mmol/L Carbon Dioxide 23 (22-30) mmol/L Anion Gap 10 mmol/L BUN 14 (7-17) mg/dL Creatinine 0.73 (0.52-1.04) mg/dL Est GFR (CKD-EPI)AfAm >90 (>60 ml/min/1.73 sqM) Est GFR (CKD-EPI)NonAf >90 (>60 ml/min/1.73 sqM) Glucose 104 H (74-99) mg/dL Calcium 9.1 (8.4-10.2) mg/dL Total Bilirubin 0.7 (0.2-1.3) mg/dL AST 19 (14-36) U/L ALT 23 (9-52) U/L Alkaline Phosphatase 69 (38-126) U/L Total Protein 7.2 (6.3-8.2) g/dL Albumin 4.1 (3.5-5.0) g/dL Lipase 65 (23-300) U/L Urine Color Urine Appearance (Clear) Urine pH (5.0-8.0) Ur Specific [place] (1.001-1.035) Urine Protein (Negative) Urine Glucose (UA) (Negative) Urine Ketones (Negative) Urine Blood (Negative) Urine Nitrite (Negative) Urine Bilirubin (Negative) Urine Urobilinogen (<2.0) mg/dL Ur Leukocyte Esterase (Negative) Urine HCG, Qual Not Detected (Not Detectd) Trichomonas Ag (Rapid) (Negative) 11/27/18 11/27/18 Range/Units 05:37 08:00 WBC (3.8-10.6) k/uL RBC (3.80-5.40) m/uL Hgb (11.4-16.0) gm/dL Hct (34.0-46.0) % MCV (80.0-100.0) fL MCH (25.0-35.0) pg MCHC (31.0-37.0) g/dL RDW (11.5-15.5) % Plt Count (150-450) k/uL Neutrophils % % Lymphocytes % % Monocytes % % Eosinophils % % Basophils % % Neutrophils # (1.3-7.7) k/uL Lymphocytes # (1.0-4.8) k/uL Monocytes # (0-1.0) k/uL Eosinophils # (0-0.7) k/uL Basophils # (0-0.2) k/uL Sodium (137-145) mmol/L Potassium (3.5-5.1) mmol/L Chloride (98-107) mmol/L Carbon Dioxide (22-30) mmol/L Anion Gap mmol/L BUN (7-17) mg/dL Creatinine (0.52-1.04) mg/dL Est GFR (CKD-EPI)AfAm (>60 ml/min/1.73 sqM) Est GFR (CKD-EPI)NonAf (>60 ml/min/1.73 sqM) Glucose (74-99) mg/dL Calcium (8.4-10.2) mg/dL Total Bilirubin (0.2-1.3) mg/dL AST (14-36) U/L ALT (9-52) U/L Alkaline Phosphatase (38-126) U/L Total Protein (6.3-8.2) g/dL Albumin (3.5-5.0) g/dL Lipase (23-300) U/L Urine Color Yellow Urine Appearance Clear (Clear) Urine pH 6.0 (5.0-8.0) Ur Specific [place] 1.021 (1.001-1.035) Urine Protein Negative (Negative) Urine Glucose (UA) Negative (Negative) Urine Ketones 1+ H (Negative) Urine Blood Negative (Negative) Urine Nitrite Negative (Negative) Urine Bilirubin Negative (Negative) Urine Urobilinogen 2.0 (<2.0) mg/dL Ur Leukocyte Esterase Negative (Negative) Urine HCG, Qual (Not Detectd) Trichomonas Ag (Rapid) Negative (Negative) Disposition Clinical Impression: Teratoma of left ovary, Hemorrhagic ovarian cyst Disposition: HOME SELF-CARE Condition: Stable Instructions (If sedation given, give patient instructions): Ruptured Ovarian Cyst (ED) Additional Instructions: You have a tumor on her left ovary known as a teratoma. You need to see Dr. Giordano the ladle filler this week for follow-up and plan for surgical management. Is patient prescribed a controlled substance at d/c from ED?: No Referrals: None,Stated [Primary Care Provider] - 1-2 days Halle Giordano, DO [Doctor of Osteopathic Medicine] - 1-2 days
[2018-11-27 04:37] LABS: Basophils % (A) 0 %; Eosinophils # (A) 0.2 k/uL (0-0.7); Eosinophils % (A) 2 %; HCT 42.5 % (34.0-46.0); HGB 14.2 gm/dL (11.4-16.0); Lymphocytes # (A) 2.1 k/uL (1.0-4.8); Lymphocytes % (A) 22 %; MCH 31.3 pg (25.0-35.0); MCHC 33.3 g/dL (31.0-37.0); Mean Platelet Volume 7.7; Monocytes # (A) 0.6 k/uL (0-1.0); Monocytes % (A) 7 %; Neutrophils # (A) 6.4 k/uL (1.3-7.7); Neutrophils % (A) 67 %; Platelet Count 269 k/uL (150-450); RBC 4.52 m/uL (3.80-5.40); RDW 12.3 % (11.5-15.5); WBC 9.5 k/uL (3.8-10.6)
[2018-11-27 04:45] LABS: ALT 23 U/L (9-52); AST 19 U/L (14-36); African American GFR (CKD) >90 (>60 ml/min/1.73 sqM); Albumin 4.1 g/dL (3.5-5.0); Alkaline Phosphatase 69 U/L (38-126); Anion Gap 10 mmol/L; Blood Urea Nitrogen 14 mg/dL (7-17); Calcium 9.1 mg/dL (8.4-10.2); Carbon Dioxide 23 mmol/L (22-30); Chloride 106 mmol/L (98-107); Glucose 104 mg/dL (74-99); Potassium 3.6 mmol/L (3.5-5.1); Sodium 139 mmol/L (137-145); Total Bilirubin 0.7 mg/dL (0.2-1.3); Total Protein 7.2 g/dL (6.3-8.2)
[2018-11-27] MEDS ORDERED: ONDANSETRON 4 MG/2 ML VIAL IVP STA (05:17)
[2018-11-27 05:46] LABS: Appearance,Urine Clear (Clear); Bilirubin,Urine Negative (Negative); Blood,Urine Negative (Negative); Color,Urine Yellow; Glucose,Urine (UA) Negative (Negative); Ketones,Urine 1+ (Negative); Leukocyte Esterase,Urine Negative (Negative); Nitrite,Urine Negative (Negative); Protein,Urine Negative (Negative); Specific Gravity,Urine 1.021 (1.001-1.035)
[2018-11-27] MEDS ORDERED: MORPHINE SULFATE 4 MG/ML SYRINGE IVP STA (06:33)
--- NOTE | 2018-11-27 06:55 | XR ---
EXAM: XR Abdomen, 2 Views CLINICAL HISTORY: abdominal pain TECHNIQUE: Frontal upright views of the abdomen/pelvis. COMPARISON: 05/02/2015. FINDINGS: Gastrointestinal tract: Unremarkable. No dilation. Organs: A 0.5 cm calcification overlies the right midabdomen, likely representing a right renal stone, as seen on prior study. Bones/joints: Unremarkable. IMPRESSION: A 0.5 cm calcification overlies the right midabdomen, likely representing a right renal stone, as seen on prior study. Right upper quadrant ultrasound versus renal stone protocol CT may be obtained for further evaluation, if clinically indicated.
--- NOTE | 2018-11-27 08:07 | CT ---
EXAM: CT Abdomen and Pelvis With Intravenous Contrast CLINICAL HISTORY: abdominal pain TECHNIQUE: Axial computed tomography images of the abdomen and pelvis with intravenous contrast. DLP is 800.4 mGy-cm. This CT exam was performed using one or more of the following dose reduction techniques: automated exposure control, adjustment of the mA and/or kV according to patient size, and/or use of iterative reconstruction technique. COMPARISON: 06/11/2017. FINDINGS: Lung bases: Unremarkable. No mass. No consolidation. ABDOMEN: Liver: A 0.4 cm probable cyst is seen in hepatic segment 7. Gallbladder and bile ducts: Unremarkable. No calcified stones. No ductal dilation. Pancreas: Unremarkable. No mass. No ductal dilation. Spleen: Unremarkable. No splenomegaly. Adrenals: Unremarkable. No mass. Kidneys and ureters: There is a 5 mm nonobstructing stone in the midpole the right kidney, as seen on prior study. A 3 mm nonobstructing stone is seen in the upper pole the left kidney, new since prior study. Stomach and bowel: Evaluation of the bowel is limited without the use of oral contrast material. Within this limitation, there is underdistention and/or wall thickening of the stomach. Additionally, fluid is seen throughout the small bowel with questionable areas of wall thickening. Constellation of findings are suggestive of infectious versus inflammatory gastroenteritis in the correct clinical setting. Ulcer disease of the stomach would be included in the differential. PELVIS: Appendix: No findings to suggest acute appendicitis. Bladder: Unremarkable. No mass. Reproductive: There is a 1.8 cm hemorrhagic cyst in the right ovary. There is a 3.2 cm left ovarian teratoma, interval increase in size since prior study where measured up to 2.4 cm. ABDOMEN and PELVIS: Intraperitoneal space: Small amount of pelvic free fluid, likely physiologic. No free air. Bones/joints: No acute fracture. No dislocation. Soft tissues: Unremarkable. Vasculature: Unremarkable. No abdominal aortic aneurysm. Lymph nodes: Mildly prominent mesenteric lymph nodes, likely reactive. IMPRESSION: 1. Evaluation of the bowel is limited without the use of oral contrast material. Within this limitation, there is underdistention and/or wall thickening of the stomach. Additionally, fluid is seen throughout the small bowel with questionable areas of wall thickening. Constellation of findings are suggestive of infectious versus inflammatory gastroenteritis in the correct clinical setting. Ulcer disease of the stomach would be included in the differential. 2. A 1.8 cm hemorrhagic cyst in the right ovary. A 3.2 cm left ovarian teratoma, interval increase in size since prior study where measured up to 2.4 cm. Small amount of pelvic free fluid, likely physiologic. Pelvic ultrasound is recommended for further evaluation. 3. Bilateral nonobstructive nephrolithiasis
[2018-11-27] MEDS ORDERED: KETOROLAC 30 MG/ML 1 ML VIAL IVP ONE (08:20)
[2018-11-27 08:44] VITALS: RESP 20
[2018-11-28 14:13] LABS: N. gonorrhoeae,PCR Negative (Neg,Equiv); Neisseria Source Cervix
[2018-11-28 14:36] LABS: C. trachomatis,PCR Negative (Neg,Equiv); Chlamydia trachomatis Source Cervix
== END 2018-11-27 08:45 | disposition home or self-care (01) ==
LOC: EC 03:31
DX: D27.1 Benign neoplasm of left ovary (principal); F17.200 Nicotine dependence, unspecified, uncomplicated; Z91.048 Other nonmedicinal substance allergy status; Z91.011 Allergy to milk products; Z90.721 Acquired absence of ovaries, unilateral; Z98.51 Tubal ligation status; Z86.018 Personal history of other benign neoplasm
CPT/HCPCS: 36415; 80053; 83690; 85025; 81003; 81025; 87808; 87491; 87591; 74018; 74177; 99284; 96374; 96375 ×2; J2270; J2405; J1885; Q9967

== ENCOUNTER 2018-11-29 09:15 | Emergency (ER) | payer OTHER ==
[2018-11-29] MEDS ORDERED: ONDANSETRON ODT 4 MG TAB PO STA (12:14)
[2018-11-29] MEDS ORDERED: HYDROcodone/APAP 7.5-325MG 1 EACH TAB PO ONE (12:14)
[2018-11-29] MEDS ORDERED: KETOROLAC 30 MG/ML 1 ML VIAL IM STA (12:14)
--- NOTE | 2018-11-29 12:14 | ED ---
Abdominal Pain HPI - General Chief Complaint: Abdominal Pain Stated Complaint: RT SIDE/OVARY PAIN Time Seen by Provider: 11/29/18 11:28 Source: patient Mode of arrival: ambulatory Limitations: no limitations - History of Present Illness Initial Comments: Patient is a 33-year-old female presenting to the emergency department with a chief complaint of abdominal pain. Patient was diagnosed with a ruptured hemorrhagic cyst and teratoma 2 days ago and was advised to see a medical liaison for further management. Patient reports she has an appointment with a medical liaison in 2 hours but she is not able to handle the pain. Patient reports nausea with multiple episodes of vomiting. Patient reports she is having vaginal bleeding. Patient denies shortness of breath, chest pain, or headaches. Patient reports taking [id number] urologist is minimal improvement. - Related Data Home Medications Medication Instructions Recorded Confirmed Ibuprofen 400 mg PO BID PRN 11/29/18 11/29/18 Naproxen Sodium [Aleve] 440 mg PO BID 11/29/18 11/29/18 Allergies Allergy/AdvReac Type Severity Reaction Status Date / Time Bleach (Sodium Hypochlorite) Allergy Rash/Hives Verified 11/29/18 11:58 milk Allergy Unknown Verified 11/29/18 11:58 Review of Systems ROS Statement: Those systems with pertinent positive or pertinent negative responses have been documented in the HPI. ROS Other: All systems not noted in ROS Statement are negative. Past Medical History Past Medical History: GERD/Reflux, Thyroid Disorder Additional Past Medical History / Comment(s): murmur, RA, back pain, LOW VITAMIN D, LOW BLOOD SUGAR, parathyroid tumor History of Any Multi-Drug Resistant Organisms: None Reported Past Surgical History: Adenoidectomy, Tonsillectomy, Tubal Ligation Additional Past Surgical History / Comment(s): oopherectomy, facial reconstruction, Past Psychological History: Anxiety, Bipolar, Depression Smoking Status: Current every day smoker Past Alcohol Use History: Occasional Past Drug Use History: Marijuana General Exam Limitations: no limitations General appearance: alert, in no apparent distress Head exam: Present: atraumatic, normocephalic, normal inspection Eye exam: Present: normal appearance Pupils: Present: normal accommodation ENT exam: Present: normal exam, mucous membranes moist, normal external ear exam Neck exam: Present: normal inspection, full ROM Respiratory exam: Present: normal lung sounds bilaterally Cardiovascular Exam: Present: regular rate, normal rhythm, normal heart sounds GI/Abdominal exam: Present: soft, tenderness (Left lower quadrant, right lower quadrant.). Absent: distended Extremities exam: Present: normal inspection, full ROM, normal capillary refill Back exam: Present: normal inspection, full ROM Neurological exam: Present: alert, oriented X3 Psychiatric exam: Present: normal affect, normal mood Skin exam: Present: warm, intact, normal color Course Vital Signs 11/29/18 11/29/18 09:28 12:51 Temperature 97.9 F 98.2 F Pulse Rate 84 78 Respiratory 17 18 Rate Blood Pressure 124/65 125/58 O2 Sat by Pulse 100 100 Oximetry Medical Decision Making - Medical Decision Making patient is a 33-year-old female presenting to the emergency department with chief complaint of abdominal pain. Patient has been diagnosed with a hemorrhagic cyst and a teratoma. Patient currently has an appointment scheduled with her medical liaison within 2 hours and outpatient office. Patient given analgesia and advised to go and see the medical liaison. Patient also given antiemetics. Strict return parameters were thoroughly discussed with patient was understanding and agreeable. Patient discussed with physician. Disposition Clinical Impression: Abdominal pain Disposition: HOME SELF-CARE Condition: Stable Instructions (If sedation given, give patient instructions): Abdominal Pain (ED) Additional Instructions: Please return to emergency department if symptoms worsen. Please follow-up with the medical liaison. Is patient prescribed a controlled substance at d/c from ED?: No Referrals: None,Stated [Primary Care Provider] - 1-2 days Time of Disposition: 12:14
[2018-11-29 12:53] VITALS: BP 125/58; PULSE 78; RESP 18; TEMP 98.2
== END 2018-11-29 12:52 | disposition home or self-care (01) ==
LOC: EC 09:15
DX: R10.9 Unspecified abdominal pain (principal); D39.10 Neoplasm of uncertain behavior of unspecified ovary; R11.2 Nausea with vomiting, unspecified; N93.9 Abnormal uterine and vaginal bleeding, unspecified; M06.9 Rheumatoid arthritis, unspecified; F17.200 Nicotine dependence, unspecified, uncomplicated; Z91.011 Allergy to milk products; Z91.048 Other nonmedicinal substance allergy status; Z79.1 Long term (current) use of non-steroidal anti-inflammatories (NSAID); Z87.19 Personal history of other diseases of the digestive system; Z90.721 Acquired absence of ovaries, unilateral; Z98.51 Tubal ligation status
CPT/HCPCS: 99283; 96372; J1885

== ENCOUNTER 2018-12-08 11:11 | Inpatient (IN) | payer MEDICAID, OTHER ==
--- NOTE | 2018-12-08 11:54 | ED ---
General Adult HPI - General Chief complaint: Psychiatric Symptoms Stated complaint: Mental Health Time Seen by Provider: 12/08/18 11:20 Source: patient, RN notes reviewed Mode of arrival: ambulatory Limitations: no limitations - History of Present Illness Initial comments: This is a 33-year-old female presents emergency department stating she has a past medical history significant for bipolar depression and PTSD. Patient states she has been having suicidal thoughts yesterday once [facility] and they directed her to come to the hospital. Patient states she really does not want to continue living. Patient states she has no specific plan. Patient denies any drug use or alcohol use. Patient denies any physical complaints today. Patient denies headache patient denies numbness weakness. Patient denies chest pain difficulty breathing shortness of breath per patient denies abdominal pain patient denies nausea vomiting diarrhea. Patient denies any recent injury or trauma. - Related Data Home Medications Medication Instructions Recorded Confirmed No Known Home Medications 12/08/18 12/08/18 Allergies Allergy/AdvReac Type Severity Reaction Status Date / Time Bleach (Sodium Hypochlorite) Allergy Rash/Hives Verified 12/08/18 12:09 milk AdvReac Nausea & Verified 12/08/18 12:09 Vomiting Review of Systems ROS Statement: Those systems with pertinent positive or pertinent negative responses have been documented in the HPI. ROS Other: All systems not noted in ROS Statement are negative. Past Medical History Past Medical History: GERD/Reflux, Thyroid Disorder Additional Past Medical History / Comment(s): murmur, RA, back pain, LOW VITAMIN D, LOW BLOOD SUGAR, parathyroid tumor History of Any Multi-Drug Resistant Organisms: None Reported Past Surgical History: Adenoidectomy, Tonsillectomy, Tubal Ligation Additional Past Surgical History / Comment(s): oopherectomy, facial reconstruction, Past Psychological History: Anxiety, Bipolar, Depression Smoking Status: Current every day smoker Past Alcohol Use History: Occasional Past Drug Use History: Marijuana General Exam - General Exam Comments Initial Comments: GENERAL: Patient is well-developed and well-nourished. Patient is nontoxic and well- hydrated and is in no acute distress. ENT: Neck is soft and supple. No significant lymphadenopathy is noted. Oropharynx is clear. Moist mucous membranes. Neck has full range of motion without eliciting any pain. EYES: The sclera were anicteric and conjunctiva were pink and moist. Extraocular movements were intact and pupils were equal round and reactive to light. Eyelids were unremarkable. PULMONARY: Unlabored respirations. Good breath sounds bilaterally. No audible rales rhonchi or wheezing was noted. CARDIOVASCULAR: There is a regular rate and rhythm without any murmurs gallops or rubs. ABDOMEN: Soft and nontender with normal bowel sounds. SKIN: Skin is clear with no lesions or rashes and otherwise unremarkable. NEUROLOGIC: Patient is alert and oriented x3. Cranial nerves II through XII are grossly intact. Motor and sensory are also intact. Normal speech, volume and content. Symmetrical smile. MUSCULOSKELETAL: Normal extremities with adequate strength and full range of motion. No lower extremity swelling or edema. No calf tenderness. LYMPHATICS: No significant lymphadenopathy is noted PSYCHIATRIC: Patient is tearful throughout the interview and states that she is suicidal. Limitations: no limitations Course Vital Signs 12/08/18 11:19 Temperature 97.7 F Pulse Rate 84 Respiratory 22 Rate Blood Pressure 137/67 O2 Sat by Pulse 100 Oximetry Medical Decision Making - Medical Decision Making Patient had told me initially she did not take any illegal drugs however when her drug screen came up positive for methamphetamine she did admit to. Patient was evaluated by [facility] decided to admit the patient patient signed herself in. - Lab Data Lab Results 12/08/18 12/08/18 Range/Units 11:43 11:43 Urine HCG, Qual Not Detected (Not Detectd) Urine Opiates Screen Not Detected (NotDetected) Ur Oxycodone Screen Not Detected (NotDetected) Urine Methadone Screen Not Detected (NotDetected) Ur Propoxyphene Screen Not Detected (NotDetected) Ur Barbiturates Screen Not Detected (NotDetected) U Tricyclic Antidepress Not Detected (NotDetected) Ur Phencyclidine Scrn Not Detected (NotDetected) Ur Amphetamines Screen Detected H (NotDetected) U Methamphetamines Scrn Detected H (NotDetected) U Benzodiazepines Scrn Not Detected (NotDetected) Urine Cocaine Screen Not Detected (NotDetected) U Marijuana (THC) Screen Detected H (NotDetected) Disposition Clinical Impression: Methamphetamine abuse, Depression, Suicidal ideations Disposition: ADMITTED IP TO THIS [facility] Referrals: None,Stated [Primary Care Provider] - 1-2 days Time of Disposition: 15:30
[2018-12-08 12:12] LABS: Amphetamine Screen,Urine Detected (NotDetected); Barbiturate Screen,Urine Not Detected (NotDetected); Benzodiazepines Screen,Urine Not Detected (NotDetected); Cocaine Screen,Urine Not Detected (NotDetected); Methadone Screen, Urine Not Detected (NotDetected); Opiate Screen,Urine Not Detected (NotDetected); Oxycodone Screen, Urine Not Detected (NotDetected); Phencyclidine Screen,Urine Not Detected (NotDetected); Tricyclic Antidepressant,Urine Not Detected (NotDetected); Urn Cannabinoid Scrn Detected (NotDetected)
[2018-12-08] MEDS ORDERED: ZIPRASIDONE 20 MG VIAL IM PRN (16:30)
[2018-12-08] MEDS: NICOTINE 14MG/24HR PATCH TRANSDERM SCH (17:05)
[2018-12-08 18:05] LABS: Appearance,Urine Cloudy (Clear); Bilirubin,Urine Negative (Negative); Blood,Urine Negative (Negative); Color,Urine Yellow; Glucose,Urine (UA) Negative (Negative); Hyaline Casts,Urine 3 /lpf (0-2); Ketones,Urine Negative (Negative); Leukocyte Esterase,Urine Negative (Negative); Mucus,Urine Moderate /hpf; Nitrite,Urine Negative (Negative); Protein,Urine Trace (Negative); RBC,Urine 1 /hpf (0-5); Specific Gravity,Urine 1.026 (1.001-1.035); Squamous Epithelial Cell,Urine 10 /hpf (0-4); Urobilinogen,Urine <2.0 mg/dL (<2.0); WBC,Urine 1 /hpf (0-5)
[2018-12-08] MEDS ORDERED: CALCIUM CARBONATE 500 MG CHEWABLE PO PRN (18:25)
--- NOTE | 2018-12-08 18:26 | P.MDCNMH ---
History of Present Illness H&P Date: 12/08/18 Chief Complaint: Medical management 33-year-old female with PMH of GERD, parathyroid problem?, teratoma presents to the ED for psychiatric evaluation for suicidal ideation. [facility] physicians has been consulted for medical management of this patient. Patient has no physical complaints at this time. She does complain of right index and middle finger pain from bending her finger to far back today. She denies any headache, lower extremity edema, nausea or vomiting, fever or chills, cough, chest pain, shortness of breath, changes in urination or bowel habits. No changes in appetite or weight. Patient denies any dizziness, numbness/weakness/tingling of the extremities. Review of Systems Pertinent positives and negatives as discussed in HPI, a complete review of systems was performed and all other systems are negative. Past Medical History Past Medical History: GERD/Reflux, Thyroid Disorder Additional Past Medical History / Comment(s): murmur, RA, back pain, LOW VITAMIN D, LOW BLOOD SUGAR, parathyroid tumor History of Any Multi-Drug Resistant Organisms: None Reported Past Surgical History: Adenoidectomy, Tonsillectomy, Tubal Ligation Additional Past Surgical History / Comment(s): oopherectomy, facial reconstruction, Past Psychological History: Anxiety, Bipolar, Depression Smoking Status: Current every day smoker Past Alcohol Use History: Occasional Past Drug Use History: Marijuana Medications and Allergies Home Medications Medication Instructions Recorded Confirmed Type No Known Home Medications 12/08/18 12/08/18 History Allergies Allergy/AdvReac Type Severity Reaction Status Date / Time Bleach (Sodium Hypochlorite) Allergy Rash/Hives Verified 12/08/18 12:09 milk AdvReac Nausea & Verified 12/08/18 12:09 Vomiting Physical Exam Vitals: Vital Signs Temp Pulse Pulse Resp BP BP Pulse Ox 12/08/18 17:32 99.6 F 84 16 122/90 12/08/18 11:19 97.7 F 84 22 137/67 100 Intake and Output 12/08/18 12/08/18 12/08/18 06:59 14:59 22:59 Other: Weight 73.028 kg 72.4 kg General: [non toxic], [no distress], [appears at stated age] Derm: [warm], [dry] Head: [atraumatic], [normocephalic], [symmetric] Eyes: [EOMI], [no lid lag], [anicteric sclera] Mouth: [no lip lesion], [mucus membranes moist] Cardiovascular: [S1S2 reg], [no murmur], [positive posterior tibial pulse bilateral], Lungs: [CTA bilateral], [no rhonchi, no rales] , [no accessory muscle use] Abdominal: [soft], [ nontender to palpation], [no guarding], [no appreciable organomegaly] Ext: [no gross muscle atrophy], [no edema], [no contractures] Neuro: [ CN II-XI grossly intact], [no focal neuro deficits] Psych: [Alert], [oriented], [appropriate affect] Cranial Nerve Examination - Cranial Nerves Cranial Nerve II- Optic: Intact Cranial Nerve III- Oculomotor: Intact Cranial Nerve IV- Trochlear: Intact Cranial Nerve V- Trigeminal: Intact Cranial Nerve - Abducens: Intact Cranial Nerve VII- Facial: Intact Cranial Nerve VIII- Auditory: Intact Cranial Nerve IX- Glossopharyngeal: Intact Cranial Nerve X- Vagus: Intact Cranial Nerve XI- Accessory: Intact Cranial Nerve XII- Hypoglossal: Intact Results Labs: Abnormal Lab Results - Last 24 Hours (Table) 12/08/18 12/08/18 Range/Units 11:43 11:43 Urine Appearance Cloudy H (Clear) Urine Protein Trace H (Negative) Ur Squamous Epith Cells 10 H (0-4) /hpf Hyaline Casts 3 H (0-2) /lpf Urine Mucus Moderate H (None) /hpf Ur Amphetamines Screen Detected H (NotDetected) U Methamphetamines Scrn Detected H (NotDetected) U Marijuana (THC) Screen Detected H (NotDetected) Assessment and Plan Assessment: Assessment and plan GERD Polysubstance abuse Plans: Tums as needed for heartburn. UDS positive for amphetamine, methamphetamine and marijuana. Plans: Start nicotine patch. Consider Ativan for agitation. Patient will need adequate PCP follow-up to deal with her nonurgent history of parathyroid tumor? And teratoma? Thank you for this consultation. Please call with any additional questions or concerns.
[2018-12-08] MEDS: hydrOXYzine PAMOATE 25 MG CAP PO PRN (19:03)
[2018-12-08] MEDS: ACETAMINOPHEN TAB 325 MG TAB PO PRN ×2 (19:04→23:10)
[2018-12-09] MEDS: NICOTINE 14MG/24HR PATCH TRANSDERM SCH (09:22)
[2018-12-09] MEDS: hydrOXYzine PAMOATE 25 MG CAP PO PRN ×3 (09:24→21:58)
[2018-12-09] MEDS: ACETAMINOPHEN TAB 325 MG TAB PO PRN ×3 (09:24→21:59)
[2018-12-09 09:44] LABS: Basophils # (A) 0.1 k/uL (0-0.2); Basophils % (A) 2 %; Eosinophils # (A) 0.2 k/uL (0-0.7); Eosinophils % (A) 4 %; HCT 42.2 % (34.0-46.0); Lymphocytes # (A) 2.3 k/uL (1.0-4.8); Lymphocytes % (A) 43 %; MCH 31.4 pg (25.0-35.0); MCHC 33.1 g/dL (31.0-37.0); MCV 94.8 fL (80.0-100.0); Mean Platelet Volume 7.8; Monocytes # (A) 0.4 k/uL (0-1.0); Monocytes % (A) 8 %; Neutrophils # (A) 2.2 k/uL (1.3-7.7); Neutrophils % (A) 40 %; Platelet Count 315 k/uL (150-450); RBC 4.45 m/uL (3.80-5.40); WBC 5.4 k/uL (3.8-10.6)
[2018-12-09 09:48] LABS: ALT 15 U/L (9-52); AST 19 U/L (14-36); African American GFR (CKD) >90 (>60 ml/min/1.73 sqM); Albumin 4.1 g/dL (3.5-5.0); Alkaline Phosphatase 60 U/L (38-126); Anion Gap 7 mmol/L; Bilirubin, Delta 0.1 mg/dL (0.0-0.2); Bilirubin,Unconjugated 0.6 mg/dL (0.0-1.1); Blood Urea Nitrogen 12 mg/dL (7-17); Calcium 9.1 mg/dL (8.4-10.2); Carbon Dioxide 26 mmol/L (22-30); Chloride 106 mmol/L (98-107); Cholesterol 139 mg/dL (<200); Glucose 82 mg/dL (74-99); HDL Cholesterol 46 mg/dL (40-60); LDL Cholesterol,Calculated 81 mg/dL (0-99); Sodium 139 mmol/L (137-145); Total Bilirubin 0.7 mg/dL (0.2-1.3); Total Protein 7.1 g/dL (6.3-8.2); Triglycerides 58 mg/dL (<150)
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
[2018-12-09 19:08] LABS: Hemoglobin A1C 5.3 % (4.0-6.0)
[2018-12-09] MEDS: MAG HYDROX/AL HYDROX/SIMETH 30 ML CUP PO PRN (22:00)
[2018-12-10] MEDS: NICOTINE 14MG/24HR PATCH TRANSDERM SCH (07:50)
[2018-12-10] MEDS: hydrOXYzine PAMOATE 25 MG CAP PO PRN ×3 (07:51→23:05)
[2018-12-10] MEDS: ACETAMINOPHEN TAB 325 MG TAB PO PRN ×3 (07:51→23:05)
[2018-12-10] MEDS: MAG HYDROX/AL HYDROX/SIMETH 30 ML CUP PO PRN (16:43)
--- NOTE | 2018-12-10 18:20 | P.PN ---
Progress Note - Text Progress Note Date: 12/10/18 IDENTIFICATION DATA: 33-year-old female who was admitted to the psychiatric unit voluntarily with complaints of depression and suicidal ideation. She is currently homeless and has no income. INTERVAL HISTORY: She reports feeling sad, hopeless, helpless and worthless. She reports poor sleep and anxiety. She says she just wants to sleep and does not want to wake up. She reports feeling tired and sad about life in general. She reports good appetite. She is currently taking only vistaril. She has agreed to take effexor and remeron for depression and insomnia MENTAL STATUS EXAMINATION: 33 year old female.. Appears stated age in fair grooming and hygiene. speech and thought process are goal directed. mood is sad and affect constricted. denies current auditory hallucinations and visual hallucinations. Denies paranoid ideations. Reports current suicidal with no plan. Denies homicidal ideations. She is alert and oriented x 4. Her insight and judgement are improving. Assessment Major depressive disorder recurrent without psychotic features methamphetamine use disorder, alcohol use disorder, cannabis use disorder, PLAN: Continue Vistaril 25 mg every 6 hours when necessary for anxiety. Will start effexor 37.5mg po daily for depression Remeron 7.5mg po qhs for insomnia
[2018-12-10] MEDS: MIRTAZAPINE 15 MG TAB PO SCH (21:28)
[2018-12-11] MEDS: NICOTINE 14MG/24HR PATCH TRANSDERM SCH (08:05)
[2018-12-11] MEDS: VENLAFAXINE HCL ER 37.5 MG CAP PO SCH (08:05)
[2018-12-11] MEDS: hydrOXYzine PAMOATE 25 MG CAP PO PRN ×3 (08:07→21:11)
[2018-12-11] MEDS: ACETAMINOPHEN TAB 325 MG TAB PO PRN (08:07)
--- NOTE | 2018-12-11 17:34 | P.PN ---
Progress Note - Text Progress Note Date: 12/11/18 IDENTIFICATION DATA: 33-year-old female who was admitted to the psychiatric unit voluntarily with complaints of depression and suicidal ideation. She is currently homeless and has no income. INTERVAL HISTORY: She reports mood swings and claims ot have been diagnosed with borderline personality as well as bipolar disorder in the past. She says she is tired of having mood swings. She reports poor sleep and claims to have slept only for four hours yesterday. She says she is loosing her appetite. she says she just doesnt want to live. MENTAL STATUS EXAMINATION: 33 year old female.. Appears stated age in fair grooming and hygiene. speech and thought process are goal directed. mood is sad and affect constricted. denies current auditory hallucinations and visual hallucinations. Denies paranoid ideations. Reports current suicidal with no plan. Denies homicidal ideations. She is alert and oriented x 4. Her insight and judgement are improving. Assessment Major depressive disorder recurrent without psychotic features methamphetamine use disorder, alcohol use disorder, cannabis use disorder, PLAN: Continues to meet criteria for inpatient hospitalization Will start her on trileptal 150mg po qhs for mood instability. Continue Vistaril 25 mg every 6 hours when necessary for anxiety. effexor 37.5mg po daily for depression Remeron 7.5mg po qhs for insomnia
[2018-12-11] MEDS: NICOTINE 21MG/24HR PATCH TRANSDERM SCH (20:24)
[2018-12-11] MEDS: MIRTAZAPINE 15 MG TAB PO SCH (21:09)
[2018-12-11] MEDS: OXcarbazepine 150 MG TAB PO SCH (21:10)
[2018-12-11] MEDS: IBUPROFEN 200 MG TAB PO PRN (21:12)
[2018-12-12] MEDS: hydrOXYzine PAMOATE 25 MG CAP PO PRN ×3 (08:58→21:42)
[2018-12-12] MEDS: IBUPROFEN 200 MG TAB PO PRN ×2 (08:58→16:18)
[2018-12-12] MEDS: VENLAFAXINE HCL ER 37.5 MG CAP PO SCH (08:58)
[2018-12-12] MEDS: NICOTINE 21MG/24HR PATCH TRANSDERM SCH (08:58)
[2018-12-12] MEDS ORDERED: VENLAFAXINE HCL ER 37.5 MG CAP PO STA (14:35)
[2018-12-12] MEDS: OLANZapine 5 MG TAB PO SCH ×2 (16:19→21:44)
[2018-12-12] MEDS: metroNIDAZOLE 500 MG TAB PO SCH (21:42)
[2018-12-12] MEDS: MIRTAZAPINE 15 MG TAB PO SCH (21:42)
[2018-12-12] MEDS: OXcarbazepine 150 MG TAB PO SCH (21:42)
--- NOTE | 2018-12-12 22:27 | PN ---
PROGRESS NOTE DATE OF SERVICE: 12/12/2018 CHIEF COMPLAINT: The patient was depressed. She had suicide thinking. She was homeless and was feeling overwhelmed. INTERVAL HISTORY: Patient has been doing fair. She had a quiet evening last night. She continues to talk about being very distressed about her situation. She acknowledges that her substance use issues along with some of her current life circumstances has created a lot of problems for her. She has been sleeping poorly. Today she has been up. She comes out in the day area. She attends groups. It is noted that sometimes in groups she has been quite intense, intrusive, and struggles with boundary issues. She acknowledges that she has had ongoing substance use issues leading up to her hospitalization. She discussed some legal issues she is struggling with. She also discussed her family situation with her 2 teenage children being with their father. She tolerates her psychotropic medications. MENTAL STATUS: Patient gave good eye contact. Psychomotor activity was restless. She answered questions appropriately. Her thoughts were clear and coherent. She was spontaneous and interactive. Her affect at times was intense. She was tearful at times. Her mood was depressed. She was moderately distressed. There was no indication for thought disorder. Cognition was clear. ASSESSMENT: I will continue the current diagnosis and treatment plan. We will continue to make efforts to engage the patient in individual and group therapeutic activities. I had an extensive discussion with the patient regarding substance withdrawal issues. I will start the patient on Zyprexa 5 mg 3 times a day. The aim of Zyprexa is to help reduce physiologic stress response relating to substance withdrawal issues. She likely will have significant acute withdrawal problems. I discussed that Dr. Ferguson may choose an alternative path for treatment given the psychotropic medications she is currently on including the Effexor, Trileptal and Remeron. I indicated that she could try the Zyprexa today and then discuss things further with Dr. Ferguson to see if he would choose to continue Zyprexa or move in any other direction with her psychotropics. I will increase her Effexor to 75 mg a day, though cautioned her that antidepressants have very limited use in early withdrawal and that I would look at that as more of a longer-term medication. I encouraged her to utilize some relaxation techniques and a therapeutic walking program also to help manage some of her withdrawal issues. We will continue to focus on stabilization and discharge planning. MMODL / IJN: [id number] /
[2018-12-13] MEDS: NICOTINE 21MG/24HR PATCH TRANSDERM SCH (09:00)
[2018-12-13] MEDS: VENLAFAXINE HCL ER 75 MG CAP PO SCH (09:01)
[2018-12-13] MEDS: hydrOXYzine PAMOATE 25 MG CAP PO PRN ×3 (09:01→21:52)
[2018-12-13] MEDS: metroNIDAZOLE 500 MG TAB PO SCH ×2 (09:02→21:52)
[2018-12-13] MEDS: OLANZapine 5 MG TAB PO SCH ×3 (09:02→21:52)
--- NOTE | 2018-12-13 12:29 | P.PN ---
Progress Note - Text Progress Note Date: 12/13/18 Chief complaint: "I am still feeling depressed and suicidal " Subjective: The patient has been seen today as follow-up, chart reviewed, case discussed with the treatment team. Patient reports poor sleep last night. Patient has been going to selective groups and other unit activities. Patient reports poor appetite. She reports continued to feel depressed with suicidal ideation, but denies having any plan or intent to end her life. She reports very poor energy with lack of motivation. Patient reports sometimes feeling very angry with urges to punch others. She denies any auditory or visual hallucinations or paranoid ideation. She was talking about continuing substance use treatment after discharge and going to inpatient rehab treatment. Patient reports history of receiving Suboxone for opioid use disorder. The patient is compliant with her medications and denies any adverse reactions. The patient denies any manic symptoms including sustained period of time with elevated or irritable mood, impulsive or irrational behavior. The patient denies any auditory or visual hallucinations. Also the patient denies any paranoid ideation. Review of other systems: Patient denies any physical symptoms besides what has been mentioned above. No breathing problems, no chest pain reported today. Objective: Vitals has been reviewed. Mental status examination; Appearance: The patient appears stated age, adequately groomed and dressed, no specific features. Gait/posture: Normal gait, Normal arm swinging: No abnormal movements. Attitude and behavior: engaged, cooperative, eye contact. Motor activity: Normal psychomotor activity Speech: Normal rate, tone. Mood: "Depressed" "irritable" Affect: Constricted Thought form: goal-directed, linear, coherent. Thought content: Non-delusional, reports suicidal thoughts, reports homicidal thoughts, denies intentions or plans. Perception: Denies any auditory or visual hallucinations Attention: No impairment. Patient was able to repeat serial 5. Orientation: Patient patient was fully oriented to time place person and situ ation. Insight: Patient has limited insight about his psychiatric disorder. Judgment: Patient has limited judgment about his psychiatric treatment. Assessment: Major depressive disorder, recurrent, severe without psychotic features. Methamphetamine use disorder. Opioid use disorder. Alcohol use disorder. Cannabis use disorder. Rule out borderline personality disorder. Plan: Continue inpatient level of care due to severe depression, suicidal ideation, need for further stabilization on medications Continue treatment of depression, and mood disturbance symptoms provide psychiatric education regarding her diagnosis Precautions: Continue 15 minutes check for safety. Consider medical consultation if any acute medical issues arise. Provide the patient individual, group therapy, substance use disorder counseling to give better insight and learn coping skills. Continue follow-up with the patient daily to monitor progress of depression, anxiety, and mood symptoms. Medications: Continue Effexor 75 mg daily for depression and anxiety symptoms. Continue Vistaril 25 mg 4 times a day daily as needed for anxiety. Continue Remeron and increase the dose to 15 mg at bedtime to help with insomnia and for depression symptoms. Continue Trileptal and increase the dose to 150 mg twice daily for mood stabilization. Flagyl 500 mg twice daily for vaginal discharge Discharge patient to OUTPATIENT services upon a stabilization Prognosis: No improvement Expected LOS: 5-7 days
[2018-12-13] MEDS: OXcarbazepine 150 MG TAB PO SCH ×2 (13:36→21:58)
[2018-12-13] MEDS: NICOTINE POLACRILEX 2 MG GUM BUCCAL PRN ×2 (15:29→23:04)
[2018-12-13] MEDS: MIRTAZAPINE 15 MG TAB PO SCH (21:52)
[2018-12-14] MEDS: NICOTINE 21MG/24HR PATCH TRANSDERM SCH (09:17)
[2018-12-14] MEDS: metroNIDAZOLE 500 MG TAB PO SCH ×2 (09:17→20:04)
[2018-12-14] MEDS: VENLAFAXINE HCL ER 75 MG CAP PO SCH (09:35)
[2018-12-14] MEDS: OXcarbazepine 300 MG TAB PO SCH ×2 (09:35→20:04)
[2018-12-14] MEDS: hydrOXYzine PAMOATE 25 MG CAP PO PRN ×2 (09:35→20:05)
[2018-12-14] MEDS: OXcarbazepine 150 MG TAB PO SCH (09:37)
[2018-12-14] MEDS: OLANZapine 5 MG TAB PO SCH (09:37)
--- NOTE | 2018-12-14 12:08 | P.PN ---
Progress Note - Text Progress Note Date: 12/14/18 Chief complaint: "I'm still very depressed and irritable " Subjective: The patient has been seen today as follow-up, chart reviewed, case discussed with the treatment team. Patient reports poor sleep last night. Patient has been going to selective groups and other unit activities. Patient reports diminished appetite. Patient reports difficulty going to sleep last night, feels more depressed and very irritable today, and has less motivation and diminished appetite. She reports having times feeling hopeless and worthless and has intermittent suicidal ideation. She denies auditory or visual hallucinations and denies paranoid ideation. She reports her anxiety is very high with nonstop racing thoughts, but denies nightmares last night.The patient is compliant with her medications and denies any adverse reactions. Discussed with the patient risks, benefits, alternatives of her psychiatric medications including Zyprexa. Patient was explained about the risk of weight gain with Zyprexa and she chooses not to continue the medication and requested to be switched on a different mood stabilizer. After discussing the other medications, patient agreed to start on attitude for mood stabilization. Objective: Vitals has been reviewed. Mental status examination; Appearance: The patient appears stated age, adequately groomed and dressed, no specific features. Gait/posture: Normal gait, Normal arm swinging: No abnormal movements. Attitude and behavior: engaged, cooperative, eye contact. Motor activity: Normal psychomotor activity Speech: Normal rate, tone. Mood: "Depressed" "irritable" Affect: Constricted Thought form: goal-directed, linear, coherent. Thought content: Non-delusional, reports suicidal thoughts, denies homicidal thoughts, denies intentions or plans. Perception: Denies any auditory or visual hallucinations Attention: No impairment. Patient was able to repeat serial 5. Orientation: Patient patient was fully oriented to time place person and situation. Insight: Patient has limited insight about his psychiatric disorder. Judgment: Patient has limited judgment about his psychiatric treatment. Assessment: Major depressive disorder, recurrent, severe without psychotic features. Methamphetamine use disorder. Opioid use disorder. Alcohol use disorder. Cannabis use disorder. Rule out borderline personality disorder. Plan: Continue inpatient level of care due to severe depression, suicidal ideation, need for further stabilization on medications Continue treatment of depression, and mood disturbance symptoms provide psychiatric education regarding her diagnosis Precautions: Continue 15 minutes check for safety. Consider medical consultation if any acute medical issues arise. Provide the patient individual, group therapy, substance use disorder counseling to give better insight and learn coping skills. Continue follow-up with the patient daily to monitor progress of depression, anxiety, and mood symptoms. Medications: Continue Effexor 75 mg daily for depression and anxiety symptoms. Increase Vistaril to 50 mg 4 times a day daily as needed for anxiety. Continue Remeron and increase the dose to 15 mg at bedtime to help with insomnia and for depression symptoms. Start melatonin 5 mg at bedtime to help was insomnia Increase Trileptal to 300 mg twice daily for mood stabilization. Gradually taper off Zyprexa-patient refused to continue the medication because of the high risk of weight gain. Started Latuda 20 mg with lunch time for mood stabilization-start from tomorrow Flagyl 500 mg twice daily for vaginal discharge Discharge patient to OUTPATIENT services upon a stabilization Prognosis: No improvement Expected LOS: 4-6 days
[2018-12-14] MEDS: IBUPROFEN 200 MG TAB PO PRN (14:27)
[2018-12-14] MEDS: MELATONIN 5 MG TABLET PO SCH (20:04)
[2018-12-14] MEDS: MIRTAZAPINE 15 MG TAB PO SCH (20:04)
[2018-12-14] MEDS: NICOTINE POLACRILEX 2 MG GUM BUCCAL PRN (20:31)
[2018-12-14] MEDS ORDERED: OLANZapine 10 MG TAB PO SCH (21:00)
[2018-12-15] MEDS: NICOTINE 21MG/24HR PATCH TRANSDERM SCH (09:02)
[2018-12-15] MEDS: metroNIDAZOLE 500 MG TAB PO SCH ×2 (09:23→21:50)
[2018-12-15] MEDS: OXcarbazepine 300 MG TAB PO SCH (09:23)
[2018-12-15] MEDS: VENLAFAXINE HCL ER 75 MG CAP PO SCH (09:23)
[2018-12-15] MEDS: hydrOXYzine PAMOATE 25 MG CAP PO PRN ×2 (09:23→15:23)
[2018-12-15] MEDS ORDERED: LURASIDONE 20 MG TAB PO SCH (12:30)
--- NOTE | 2018-12-15 14:17 | P.PN ---
Progress Note - Text Progress Note Date: 12/15/18 Chief complaint: "I'm still feeling very shaky, irritable, and depressed " Subjective: The patient has been seen today as follow-up, chart reviewed, case discussed with the treatment team. Patient reports had better sleep last night. Patient has been going to very limited groups and other unit activities. Patient reports fair appetite. Patient reports continued to feel very irritable, depressed, was bouts of severe anxiety. She addressed that she had tremors and shaking for most of the time and she couldn't tolerate being around other people or going to groups. She reports is still has thoughts of and wish to . Patient reports severe mood swings and to some degree feeling paranoid. She denies any auditory or visual hallucinations, and no delusions could be elicited. The patient is compliant with her medications and denies any adverse reactions. Objective: Vitals has been reviewed. Mental status examination: Appearance: The patient appears stated age, adequately groomed and dressed, no specific features. Gait/posture: Normal gait, Normal arm swinging: No abnormal movements. Attitude and behavior: engaged, cooperative, eye contact. Motor activity: Normal psychomotor activity Speech: Normal rate, tone. Mood: "Depressed" "irritable" Affect: Constricted Thought form: goal-directed, linear, coherent. Thought content: Non-delusional, reports suicidal thoughts, denies homicidal thoughts, denies intentions or plans. Perception: Denies any auditory or visual hallucinations Attention: No impairment. Patient was able to repeat serial 5. Orientation: Patient patient was fully oriented to time place person and situation. Insight: Patient has limited insight about his psychiatric disorder. Judgment: Patient has limited judgment about his psychiatric treatment. Assessment: Major depressive disorder, recurrent, severe without psychotic features. Methamphetamine use disorder. Opioid use disorder. Alcohol use disorder. Cannabis use disorder. Rule out borderline personality disorder. Plan: Continue inpatient level of care due to severe depression, suicidal ideation, need for further stabilization on medications Continue treatment of depression, and mood disturbance symptoms provide psychiatric education regarding her diagnosis Precautions: Continue 15 minutes check for safety. Consider medical consultation if any acute medical issues arise. Provide the patient individual, group therapy, substance use disorder counseling to give better insight and learn coping skills. Continue follow-up with the patient daily to monitor progress of depression, anxiety, and mood symptoms. Medications: Increase Effexor 112.5 mg daily for depression and anxiety symptoms. Continue Vistaril to 50 mg 4 times a day daily as needed for anxiety. Continue Remeron 15 mg at bedtime to help with insomnia and for depression symptoms. Continue melatonin 5 mg at bedtime to help was insomnia Increase Trileptal to 450 mg twice daily for mood stabilization. Gradually taper off Zyprexa-patient refused to continue the medication because of the high risk of weight gain. Increase Latuda 20 mg twice daily with lunch and dinner for mood stabilization Flagyl 500 mg twice daily for vaginal discharge Discharge patient to OUTPATIENT services upon a stabilization Prognosis: Minimal improvement Expected LOS: 3-5 days
[2018-12-15] MEDS: MAGNESIUM HYDROXIDE 2,400 MG/10 ML CUP PO PRN (15:24)
[2018-12-15] MEDS: NICOTINE POLACRILEX 2 MG GUM BUCCAL PRN (15:26)
[2018-12-15] MEDS: IBUPROFEN 200 MG TAB PO PRN (16:23)
[2018-12-15 16:45] VITALS: BMI 27.5
[2018-12-15] MEDS: LURASIDONE 20 MG TAB PO SCH (17:39)
[2018-12-15] MEDS ORDERED: OLANZapine 10 MG TAB PO SCH (21:00)
[2018-12-15] MEDS: OXcarbazepine 150 MG TAB PO SCH (21:48)
[2018-12-15] MEDS: MIRTAZAPINE 15 MG TAB PO SCH (21:48)
[2018-12-15] MEDS: MELATONIN 5 MG TABLET PO SCH (21:49)
[2018-12-16] MEDS ORDERED: LURASIDONE 20 MG TAB PO SCH (09:00)
[2018-12-16] MEDS: OXcarbazepine 150 MG TAB PO SCH (09:17)
[2018-12-16] MEDS: VENLAFAXINE HCL ER 37.5 MG CAP PO SCH (09:17)
[2018-12-16] MEDS: metroNIDAZOLE 500 MG TAB PO SCH ×2 (09:17→21:49)
[2018-12-16] MEDS: LURASIDONE 20 MG TAB PO SCH (09:17)
[2018-12-16] MEDS: NICOTINE 21MG/24HR PATCH TRANSDERM SCH (09:18)
--- NOTE | 2018-12-16 13:37 | P.PN ---
Progress Note - Text Progress Note Date: 12/16/18 Chief complaint: "And feeling very irritable with his anxiety and had nightmares last night " Subjective: The patient has been seen today as follow-up, chart reviewed, case discussed with the treatment team. Patient reports very poor sleep last night. Patient has been going to few groups and other unit activities because she couldn't tolerate being around others. Patient reports decreased appetite. Patient reports continued to feel very irritable, shaky, with a high anxiety level. She reports had very poor sleep last night and multiple nightmares but she couldn't recall them. She reports very poor concentration and not able to focus with sometimes having outbursts of severe agitation. She continued to have severe mood swings and he presents was very irritable mood and she is easily agitated as per staff report. Patient reports continued to have suicidal ideation and wishes to . The patient is compliant with her medications and denies any adverse reactions. Patient denies any symptoms of acute nicole or psychosis. Objective: Vitals has been reviewed. Mental status examination: Appearance: The patient appears stated age, adequately groomed and dressed, no specific features. Gait/posture: Normal gait, Normal arm swinging: No abnormal movements. Attitude and behavior: engaged, cooperative, eye contact. Motor activity: Normal psychomotor activity Speech: Normal rate, tone. Mood: "Depressed" "irritable" Affect: Constricted Thought form: goal-directed, linear, coherent. Thought content: Non-delusional, reports suicidal thoughts, denies homicidal thoughts, denies intentions or plans. Perception: Denies any auditory or visual hallucinations Attention: No impairment. Patient was able to repeat serial 5. Orientation: Patient patient was fully oriented to time place person and situation. Insight: Patient has limited insight about his psychiatric disorder. Judgment: Patient has limited judgment about his psychiatric treatment. Assessment: Major depressive disorder, recurrent, severe without psychotic features. Methamphetamine use disorder. Opioid use disorder. Alcohol use disorder. Cannabis use disorder. Rule out borderline personality disorder. Plan: Continue inpatient level of care due to severe depression, suicidal ideation, need for further stabilization on medications Continue treatment of depression, and mood disturbance symptoms provide psychiatric education regarding her diagnosis Precautions: Continue 15 minutes check for safety. Consider medical consultation if any acute medical issues arise. Provide the patient individual, group therapy, substance use disorder counseling to give better insight and learn coping skills. Continue follow-up with the patient daily to monitor progress of depression, anxiety, and mood symptoms. Medications: Continue Effexor 112.5 mg daily for depression and anxiety symptoms. Continue Vistaril to 50 mg 4 times a day daily as needed for anxiety. Continue melatonin 5 mg at bedtime to help was insomnia Increase Trileptal to 600 mg twice daily for mood stabilization. Zyprexa was completely discontinued after tapered off because the patient was concerned about weight gain. Discontinue Remeron because the patient consented about weight gain. Increase Latuda 40 mg twice daily with lunch and dinner for mood stabilization Start Klonopin 0.5 mg twice daily as needed for severe anxiety or agitation. Start trazodone 100 mg at bedtime as needed for insomnia Flagyl 500 mg twice daily for vaginal discharge Discharge patient to OUTPATIENT services upon a stabilization Prognosis: No improvement Expected LOS: 3-5 days
[2018-12-16] MEDS: IBUPROFEN 200 MG TAB PO PRN (15:02)
[2018-12-16] MEDS: hydrOXYzine PAMOATE 25 MG CAP PO PRN ×2 (15:02→21:52)
[2018-12-16] MEDS: clonazePAM 0.5 MG TAB PO PRN ×2 (15:04→21:52)
[2018-12-16] MEDS: MAG HYDROX/AL HYDROX/SIMETH 30 ML CUP PO PRN (16:00)
[2018-12-16] MEDS: LURASIDONE 40 MG TAB PO SCH (17:53)
[2018-12-16] MEDS: MELATONIN 5 MG TABLET PO SCH (21:49)
[2018-12-16] MEDS: OXcarbazepine 300 MG TAB PO SCH (21:49)
[2018-12-16] MEDS: NICOTINE POLACRILEX 2 MG GUM BUCCAL PRN (21:49)
[2018-12-16] MEDS: traZODone HCL 100 MG TAB PO PRN (21:52)
[2018-12-17] MEDS: NICOTINE 21MG/24HR PATCH TRANSDERM SCH (09:44)
[2018-12-17] MEDS: VENLAFAXINE HCL ER 37.5 MG CAP PO SCH (09:45)
[2018-12-17] MEDS: OXcarbazepine 300 MG TAB PO SCH ×2 (09:45→21:58)
[2018-12-17] MEDS: metroNIDAZOLE 500 MG TAB PO SCH ×2 (09:45→21:58)
[2018-12-17] MEDS: hydrOXYzine PAMOATE 25 MG CAP PO PRN (09:47)
[2018-12-17] MEDS: clonazePAM 0.5 MG TAB PO PRN (09:47)
[2018-12-17] MEDS: IBUPROFEN 200 MG TAB PO PRN (10:25)
--- NOTE | 2018-12-17 10:56 | P.PN ---
Progress Note - Text Interval history: The patient is found at the front end application developer she follows me to an interview room. The patient indicates that she has racing thoughts she feels anxious she has feelings of depression. In reviewing her medication list she is on Trileptal which has been titrated to 600 mg twice daily Latuda 40 mg twice daily Effexor XR 112.5 mg trazodone and she is on a nicotine patch as well as Nicorette gum. She was recently started on Klonopin 0.5 mg up to twice daily. Mental status exam: The patient is alert she is dressed in her own clothing hygiene adequate grooming fair. She is constantly moving during this session she fixes her hair she adjusts her pants she leans forward in the chair amongst other movements. Eye contact is appropriate speech is fluent spontaneous pressured at times. She endorses racing thoughts she demonstrates some tangential thinking. She is cooperative and can be redirected but was spontaneous speech will become tangential again. Insight and judgment limited. She is reporting no acute suicidal ideation intent or plan but states she has thoughts of just not wanting to wake up. She endorses some feelings of irritability. She does demonstrate some lability during the session in terms of affect. She demonstrates no verbal or physical aggressiveness. Plan: The patient will continue on her psychotropic medications except we will reduce the Effexor XR in case it is over activating, we will discontinue the Nicorette gum as she already has a patch in place. We will consider the possibility of Latuda causing akasthesia. We will monitor her for safety. She is encouraged to participate in the milieu she requires continued psychiatric hospitalization. The Trileptal and Latuda were recently titrated.
[2018-12-17] MEDS ORDERED: ZIPRASIDONE 20 MG VIAL IM ONE (11:41)
[2018-12-17] MEDS ORDERED: WATER FOR INJECTION, STERILE 10 ML IV ONE (11:42)
[2018-12-17] MEDS ORDERED: ZIPRASIDONE 20 MG VIAL IM PRN (12:09)
[2018-12-17] MEDS: LURASIDONE 40 MG TAB PO SCH ×2 (12:28→18:04)
[2018-12-17] MEDS: MELATONIN 5 MG TABLET PO SCH (21:58)
[2018-12-17] MEDS: clonazePAM 1 MG TAB PO PRN (21:58)
[2018-12-17] MEDS: traZODone HCL 100 MG TAB PO PRN (21:59)
[2018-12-18] MEDS: OXcarbazepine 300 MG TAB PO SCH ×2 (09:41→20:57)
[2018-12-18] MEDS: metroNIDAZOLE 500 MG TAB PO SCH ×2 (09:41→20:58)
[2018-12-18] MEDS: NICOTINE 21MG/24HR PATCH TRANSDERM SCH (09:41)
[2018-12-18] MEDS: VENLAFAXINE HCL ER 75 MG CAP PO SCH (09:41)
[2018-12-18] MEDS: clonazePAM 1 MG TAB PO PRN ×2 (09:43→20:57)
[2018-12-18] MEDS ORDERED: ZIPRASIDONE 20 MG VIAL IM PRN (11:09)
--- NOTE | 2018-12-18 11:31 | P.PN ---
Progress Note - Text Interval history: The patient is found in the hallway she follows me to an interview room. She states she didn't have a very good day yesterday and isn't having a good day today. She reports she was banging her head on the wall last evening and she received a Geodon injection. She felt that the injection was helpful for sleep and it did calm her down. She feels overwhelmed with stressors. She states nobody is answering her phone calls in terms of trying to contact support. She asks "why is this happening to me". We took some time trying to discuss healthier coping skills other than self-injurious behavior. The patient demonstrates little insight in discussing that topic. Mental status exam: The patient is alert she is dressed in her own clothing hygiene grooming adequate eye contact is appropriate. She is cooperative during the session and is redirectable. She is somewhat histrionic throughout the interaction. She demonstrates increased psychomotor activity frequently changing position while seated in the chair. She describes depressed feelings hopeless feelings thoughts of suicide. She reports no homicidal ideation. She is less pressured today versus yesterday but is verbose in conversation. She demonstrates no verbal or physical aggressiveness. She demonstrates no involuntary repetitive movements. Insight and judgment are limited. She remains oriented to person place and date. Plan: The patient will continue on her current medication. The Trileptal and look to do have recently been titrated. I would consider reducing the Effexor further as it may be overstimulating. I have placed an order for Geodon IM if needed for acute agitation she does have Klonopin available for anxiety. We dis cussed working on coping skill development and talking to staff before acting out her frustrations physically. Vital signs reviewed.
[2018-12-18] MEDS: LURASIDONE 40 MG TAB PO SCH ×2 (13:23→17:55)
[2018-12-18] MEDS: hydrOXYzine PAMOATE 25 MG CAP PO PRN (13:24)
[2018-12-18] MEDS: MELATONIN 5 MG TABLET PO SCH (20:57)
[2018-12-18] MEDS: traZODone HCL 100 MG TAB PO PRN (20:57)
[2018-12-19] MEDS: IBUPROFEN 200 MG TAB PO PRN ×2 (06:44→16:55)
[2018-12-19] MEDS: NICOTINE 21MG/24HR PATCH TRANSDERM SCH (06:44)
[2018-12-19] MEDS: clonazePAM 1 MG TAB PO PRN ×2 (06:44→21:55)
[2018-12-19] MEDS: VENLAFAXINE HCL ER 75 MG CAP PO SCH (09:00)
[2018-12-19] MEDS: metroNIDAZOLE 500 MG TAB PO SCH (09:00)
[2018-12-19] MEDS: OXcarbazepine 300 MG TAB PO SCH ×2 (09:01→21:27)
[2018-12-19] MEDS: hydrOXYzine PAMOATE 25 MG CAP PO PRN ×2 (09:03→16:53)
[2018-12-19] MEDS: LURASIDONE 40 MG TAB PO SCH (11:22)
--- NOTE | 2018-12-19 15:35 | P.PN ---
Progress Note - Text Progress Note Date: 12/19/18 Clinical Problems: Unspecified mood disorder, methamphetamine methamphetamine use disorder, opiate use disorder, alcohol use disorder, cannabis use disorder, borderline personality disorder Interim history: I reviewed the medical record, interviewed the patient and discussed her treatment and treatment plan during team meeting. Staff reported that she remains labile and overly emotionally reactive. She presented with several complaints including: Shaking hands, constipation, emotional lability ("emotions are like a roller coaster"), poor concentration, tinnitus, paranoia, anxiety, nightmares, general body aching and marked emotional episodes. She was markedly labile during our interview. After the interview I found her crying hysterically in the hallway. After she calm she revealed that she lost control of her emotions following a "difficult" telephone conversation with her boyfriend. She at times feels restless and is unable sit still. The tremors appeared developed since she was started on both the Latuda and Trileptal. Similarly, the complaints of internal restlessness likewise developed following these medications. She reported no benefit from these medications and feels that her emotions are less in control. Mental status exam: She presented as a casually groomed mildly obese 33-year-old female who attended the interview. She made eye contact. She had no distinguishing features or prominent physical abnormalities. She had a labile at times distressed facial expression. She had a moderately severe hand tremor that was not present during her initial assessment. Her speech was spontaneous and a rate, rhythm and volume. She waited consistent with her emotional lability. She described vague suicidal ideation or wishes but denied current intent or plan. She denied homicidal ideation. She expresses feelings of hopelessness, helplessness and worthlessness. She ruminated about her physical and emotional problems. She did not express clear ideas reference or paranoid ideation. Her thinking was concrete but her associations were logical. She denied hallucinations and did not appear to be responding to internal stimuli. Assessment: She appears more emotionally labile than on presentation. She is complaining of a number of somatic symptoms some admission may be side effects to her current medications. Plan: Continue inpatient hospitalization. Continue seeing precautions. Taper and discontinue Trileptal. Decrease Latuda to 20 mg twice a day. Consider a trial of an alternate antipsychotic medication is less likely to cause akathisia and/or tremor. Consider a trial of an alternate mood stabilizer such as lithium or Lamictal. Continue melatonin 5 mg at bedtime, Klonopin 1 mg by mouth twice a day when necessary for anxiety or agitation, Effexor XR 75 mg daily and trazodone 100 mg at bedtime. Continue Geodon 20 mg IM twice a day when necessary for agitation acute aggression. Evaluate current status response to treatment daily basis. Encourage continued participation in therapeutic groups and activities.
--- NOTE | 2018-12-19 16:28 | P.PN ---
Subjective Progress Note Date: 12/19/18 Principal diagnosis: vaginal discharge Patient had complained of vaginal discharge approximately a week ago was started on antibiotics. Patient seen and examined at bedside. She reports that her vaginal discharges resolved. She states that she was having some elbow and finger pain and that they are swollen. She then states that people are point her fingers back. She complains of right elbow pain but is easily able to move her elbow when distracted and asked to touch her other arm. She does this without wincing, grimacing, or slowing down her movements. Objective - Vital Signs Vital signs: Vital Signs Temp 97.5 F L 12/19/18 06:34 Pulse 72 12/19/18 06:34 Resp 16 12/19/18 06:34 BP 119/73 12/19/18 06:34 Pulse Ox 97 12/16/18 06:10 Intake & Output 12/18/18 12/19/18 12/19/18 18:59 06:59 18:59 Weight 78.5 kg - Exam General: non toxic, no distress, appears at stated age Ext: no gross muscle atrophy, no swelling over right elbow. With distraction easily moves forarm through extension, flexion, internal rotation and external rotation, no edema noted on right index and middle finger Neuro: CN II-XI grossly intact, no focal neuro deficits Psych: Alert, oriented, upset and easily crying - Labs CBC & Chem 7: 12/09/18 07:45 12/09/18 07:45 Assessment and Plan Assessment: Probable bacterial vaginosis - stop fagyl, symptoms resolved Elbow pain - ice packs as needed
[2018-12-19] MEDS: LURASIDONE 20 MG TAB PO SCH (17:46)
[2018-12-19] MEDS: MELATONIN 5 MG TABLET PO SCH (21:27)
[2018-12-19] MEDS: MAGNESIUM HYDROXIDE 2,400 MG/10 ML CUP PO PRN (21:27)
[2018-12-19] MEDS: traZODone HCL 100 MG TAB PO PRN (22:30)
[2018-12-20] MEDS: VENLAFAXINE HCL ER 75 MG CAP PO SCH (09:31)
[2018-12-20] MEDS: NICOTINE 21MG/24HR PATCH TRANSDERM SCH (09:31)
[2018-12-20] MEDS: OXcarbazepine 300 MG TAB PO SCH (09:31)
[2018-12-20] MEDS: hydrOXYzine PAMOATE 25 MG CAP PO PRN ×2 (09:33→17:09)
[2018-12-20] MEDS: IBUPROFEN 200 MG TAB PO PRN ×2 (09:37→21:27)
[2018-12-20] MEDS: LURASIDONE 20 MG TAB PO SCH ×2 (12:51→17:07)
[2018-12-20] MEDS: clonazePAM 1 MG TAB PO PRN ×2 (12:56→21:26)
--- NOTE | 2018-12-20 15:38 | P.PN ---
Progress Note - Text Progress Note Date: 12/20/18 Clinical Problems: Unspecified mood disorder, methamphetamine use disorder, opiate use disorder, alcohol use disorder, cannabis use disorder, borderline personality disorder Interim history: I reviewed the medical record, interviewed the patient and discussed her treatment and treatment plan during team meeting. She remains labile and overly emotionally reactive. She had a "meltdown" yesterday evening following a conversation with her boyfriend. research worker encyclopedia reported during team that she was disruptive during group therapy session. She was not respecting boundaries and was emotionally labile. She remains distressed about the possibility of being discharged later this week. The social work msw informed her that she has an admission date at [facility] on Wednesday. The patient alleged that she will not be ready for discharge and "needs more time was "to get my emotions under control." She complained about continued feelings of depression and difficulty controlling her emotions. She feels less tremulous and less restless since we decreased the dose of Trileptal and Latuda. She talked about past treatment of her substance use problems and reported that she had been abstinent from opiates only physician prescribed her Suboxone. She inquired whether the we could restart he r on Suboxone. She also asked for us to prescribe her something "to help with concentration and attention". She alleged that she been treated in the past with medications for "ADD." I explained that we do not prescribe Suboxone and that I would not prescribe a psychostimulant. We discussed other treatment options agreed to taper and discontinue both the Trileptal and Latuda. She experience benefit in terms of emotional control and decrease anxiety when she received a 20 mg dose of Geodon. We agreed to discontinue trazodone at night and begin 20 mg of trazodone at bedtime. Mental status exam: She presented as a casually groomed middle-aged female who was pleasant on approach. She made eye contact and attended the interview. She had a labile facial expression at times appeared distressed and tearful. She showed no abnormality of psychomotor activity. Her speech was spontaneous and a rate, rhythm and volume is consistent with her mood. Her affect was labile but not intense or inappropriate. She expresses vague suicidal ideation without intent or plan. She expressed feelings of hopelessness and helplessness. She ruminated about her living situation, her legal problems and her boyfriend. She did not express ideas reference, paranoid ideation or delusional thoughts. Her thinking was concrete but associates are coherent and logical. She talked about "voices" but did not appear to be responding to internal stimuli. Assessment: Overall, she appears less labile and impulsive that admission. She described a long history of substance abuse problems as well as struggles with impulsivity. The apparent tremor and akathisia is resolving. She would benefit from residential substance abuse treatment. Plan: Continue inpatient hospitalization. Discontinue Trileptal. Taper then discontinue Latuda. Begin Geodon 20 mg at bedtime, discontinue trazodone 50 mg at bedtime. Increase Effexor XR to 150 mg daily, continue Klonopin 1 mg by mouth 3 times a day (I explained that we will not prescribe Klonopin at discharge). Encourage continued participation in therapeutic groups and activities. Evaluate clinical status response to treatment daily basis.
[2018-12-20] MEDS ORDERED: ZIPRASIDONE 20 MG CAP PO SCH (21:00)
[2018-12-20] MEDS: MELATONIN 5 MG TABLET PO SCH (21:26)
[2018-12-21] MEDS: VENLAFAXINE HCL ER 150 MG CAP PO SCH (09:04)
[2018-12-21] MEDS: LORATADINE 10 MG TAB PO SCH (09:04)
[2018-12-21] MEDS: NICOTINE 21MG/24HR PATCH TRANSDERM SCH (09:04)
[2018-12-21] MEDS: hydrOXYzine PAMOATE 25 MG CAP PO PRN ×2 (09:04→17:34)
[2018-12-21] MEDS: IBUPROFEN 200 MG TAB PO PRN ×2 (12:30→21:39)
[2018-12-21] MEDS: LURASIDONE 20 MG TAB PO SCH ×2 (12:30→17:35)
[2018-12-21] MEDS: clonazePAM 1 MG TAB PO PRN ×2 (12:30→21:37)
--- NOTE | 2018-12-21 15:31 | P.PN ---
Progress Note - Text Progress Note Date: 12/21/18 Clinical Problems: Unspecified mood disorder, methamphetamine use disorder, opiate use disorder, alcohol use disorder, cannabis use disorder, borderline personality disorder Interim history: I reviewed the medical record, interviewed the patient and discussed her treatment and treatment plan during team meeting. She had several somatic complaints. She complained of headache, earache, sore throat, difficulty swallowing, elbow pain and finger pain. She again talked about needing something "for concentration". She complained that she is unable to sleep unless she takes clonazepam. She is worried about being discharged on Wednesday to [place]. She asked to the discharge could be postponed until Wednesday so that we can discharge her on Wednesday and that would give her one day to be back home with her belongings and "visit with my children ... I haven't seen my children and one year. I would like to see them before going to rehab." She also talked about conversation with her boyfriend. She alleged that during the conversation he apologizes for behavior and professed his love for her. She spoke with her grandmother and mother yesterday. Her grandmother agreed to pay $[address] fine and probation. Her mother has agreed to assist her with finding an apartment. During this discussion she noted that she is not allowed to live with her mother or grandmother. We discussed outpatient treatment options including referral for dialectical behavioral therapy. She stated that she had participated in DBT at [facility][1] but was dismissed from the program because she had problems with attendance. Mental status exam: She presented as a casually groomed middle-aged female who was pleasant on approach. She made eye contact and attended the interview. She had a depressed facial expression. She showed no abnormality of psychomotor activity. Her speech was spontaneous and a slow rate, rhythm and low volume consistent with her mood. Her affect was not labile but not intense or inappropriate. She denied suicidal ideation or wishes. She expressed feelings of hopelessness and helplessness related to her multiple social, economic, residential and legal problems. She ruminated about her living situation, her legal problems and her boyfriend. She did not express ideas reference, paranoid ideation or delusional thoughts. Her thinking was concrete but associates are coherent and logical. She talked about "voices" but did not appear to be responding to internal stimuli. Assessment: Her mood appears more depressed today than yesterday. She remained somatically focused. She described a long history of substance abuse problems as well as struggles with impulsivity. She would benefit from residential substance abuse treatment. Plan: Continue inpatient hospitalization. Discontinue Latuda. Increase Geodon to 40 mg at bedtime, continue Effexor XR to 150 mg daily, continue Klonopin 1 mg by mouth 3 times a day (I explained that we will not prescribe Klonopin at discharge). Encourage continued participation in therapeutic groups and activities. Evaluate clinical status response to treatment daily basis.
[2018-12-21] MEDS: MAG HYDROX/AL HYDROX/SIMETH 30 ML CUP PO PRN (19:06)
[2018-12-21] MEDS: MELATONIN 5 MG TABLET PO SCH (21:37)
[2018-12-21] MEDS: ZIPRASIDONE 40 MG CAP PO SCH (21:37)
[2018-12-22] MEDS: VENLAFAXINE HCL ER 150 MG CAP PO SCH (07:43)
[2018-12-22] MEDS: LORATADINE 10 MG TAB PO SCH (07:43)
[2018-12-22] MEDS: NICOTINE 21MG/24HR PATCH TRANSDERM SCH (07:43)
[2018-12-22] MEDS: hydrOXYzine PAMOATE 25 MG CAP PO PRN (07:44)
--- NOTE | 2018-12-22 12:57 | P.PN ---
Progress Note - Text Progress Note Date: 12/22/18 Clinical Problems: Unspecified mood disorder, methamphetamine use disorder, opiate use disorder, alcohol use disorder, cannabis use disorder, borderline personality disorder Interim history: I reviewed the medical record, interviewed the patient and discussed her treatment and treatment plan during team meeting. She again had multiple somatic complaints but was less preoccupied with the symptoms than yesterday. She complained of continued tremor, difficulty sleeping and experiencing "voices" when she is acutely distressed. She reference an incident yesterday where she had conflict with an unruly and disruptive roommate. She again asked for "something" to help with her concentration and attention. I explained that we would not prescribe controlled substances. I also reminded her that we will not provide her with prescriptions for clonazepam when she is discharged. She ruminated about her legal problems. She reported that her mood is brighter. She feels anxious but is anticipating discharge on 12/26/2018. Mental status exam: She presented as a casually groomed middle-aged female who was pleasant on approach. She made eye contact and attended the interview. She had a depressed facial expression. She she had a mild tremor of her hands. Her speech was spontaneous with normal rate, rhythm. Her affect was bright. She denied suicidal ideation or wishes. She did not express feelings of hopelessness and helplessness. She did not express ideas reference, paranoid ideation or delusional thoughts. Her thinking was concrete but associates are coherent and logical. She talked about "voices" but did not appear to be responding to internal stimuli. Assessment: Her mood is improved from yesterday. She remained somatically focused. She has a history of substance abuse problems as well as struggles with impulsivity. She would benefit from residential substance abuse treatment. Plan: Continue inpatient hospitalization. Discontinue Latuda. Continue Geodon to 40 mg at bedtime, continue Effexor XR to 150 mg daily, continue Klonopin 1 mg by mouth 3 times a day (I explained that we will not prescribe Klonopin at discharge). Begin a trial of Seroquel 50 mg at bedtime when necessary for sleep and continue melatonin 5 mg at bedtime when necessary for sleep. Encourage continued participation in therapeutic groups and activities. Evaluate clinical status response to treatment daily basis.
[2018-12-22] MEDS: clonazePAM 1 MG TAB PO PRN (15:26)
[2018-12-22] MEDS: IBUPROFEN 200 MG TAB PO PRN ×2 (15:29→22:10)
[2018-12-22] MEDS: QUEtiapine 50 MG TAB PO PRN (21:10)
[2018-12-22] MEDS: MELATONIN 5 MG TABLET PO SCH (21:10)
[2018-12-22] MEDS: ZIPRASIDONE 40 MG CAP PO SCH (21:11)
[2018-12-23] MEDS: NICOTINE 21MG/24HR PATCH TRANSDERM SCH (07:54)
[2018-12-23] MEDS: VENLAFAXINE HCL ER 150 MG CAP PO SCH (07:54)
[2018-12-23] MEDS: LORATADINE 10 MG TAB PO PRN (07:55)
[2018-12-23] MEDS: hydrOXYzine PAMOATE 25 MG CAP PO PRN (07:55)
[2018-12-23] MEDS: BENZTROPINE MESYLATE 1 MG TAB PO SCH ×2 (14:25→21:42)
[2018-12-23] MEDS: IBUPROFEN 200 MG TAB PO PRN (14:26)
--- NOTE | 2018-12-23 15:09 | P.PN ---
Progress Note - Text Progress Note Date: 12/23/18 linical Problems: Unspecified mood disorder, methamphetamine use disorder, opiate use disorder, alcohol use disorder, cannabis use disorder, borderline personality disorder Interim history: I reviewed the medical record, interviewed the patient and discussed her treatment and treatment plan during team meeting. She was less somatically preoccupied but expressed concern about worsening hand tremor. She had a mild to moderate hand tremor that was distinctly worse than yesterday. I suggested that the worsening maybe related to the increased dose of Geodon but she was reluctant to decrease the dose. We reviewed her substance abuse history. She admitted to using methamphetamine over the last 2 years and prior to admission. In addition she has been using heroin. She understand that she has a substance use disorder and agrees on her need for substance abuse treatment. She reported improved sleep with the 50 mg dose of Seroquel. According to the nursing record she slept 5 hours last night. Mental status exam: She presented as a casually groomed middle-aged female who was pleasant on approach. She made eye contact and attended the interview. She had a depressed facial expression. She she had a mild tremor of her hands. Her speech was spontaneous with normal rate, rhythm. Her affect was bright. She denied suicidal ideation or wishes. She did not express feelings of hopelessness and helplessness. She did not express ideas reference, paranoid ideation or delusional thoughts. Her thinking was concrete but associates are coherent and logical. She talked about "voices" but did not appear to be responding to internal stimuli. Assessment: Her mood is improved from yesterday. She has a history of substance abuse problems as well as struggles with impulsivity. She would benefit from residential substance abuse treatment. Plan: Continue inpatient hospitalization. Decrease Geodon back to 20 mg at bedtime, continue Effexor XR to 150 mg daily, continue Klonopin 1 mg by mouth 3 times a day (I explained that we will not prescribe Klonopin at discharge). Continue Seroquel 50 mg at bedtime when necessary for sleep and continue melatonin 5 mg at bedtime when necessary for sleep. Encourage continued participation in therapeutic groups and activities. Evaluate clinical status response to treatment daily basis. Discharge on 12/26/2018.
[2018-12-23] MEDS ORDERED: BENZTROPINE MESYLATE 1 MG TAB PO SCH (21:00)
[2018-12-23] MEDS: MELATONIN 5 MG TABLET PO SCH (21:42)
[2018-12-23] MEDS: QUEtiapine 50 MG TAB PO PRN (21:42)
[2018-12-23] MEDS: clonazePAM 1 MG TAB PO PRN (21:43)
[2018-12-23] MEDS: ZIPRASIDONE 20 MG CAP PO SCH (21:52)
[2018-12-24] MEDS: NICOTINE 21MG/24HR PATCH TRANSDERM SCH (08:08)
[2018-12-24] MEDS: VENLAFAXINE HCL ER 150 MG CAP PO SCH (08:08)
[2018-12-24] MEDS: BENZTROPINE MESYLATE 1 MG TAB PO SCH ×2 (08:08→22:04)
[2018-12-24] MEDS: IBUPROFEN 200 MG TAB PO PRN ×2 (09:38→22:07)
[2018-12-24] MEDS: clonazePAM 1 MG TAB PO PRN ×2 (09:38→22:08)
[2018-12-24] MEDS: LORATADINE 10 MG TAB PO PRN (09:41)
--- NOTE | 2018-12-24 11:24 | P.PN ---
Progress Note - Text Progress Note Date: 12/24/18 Interval history: Patient was seen wandering the hallways and was agreeable to speak to insurance underwriter in the office. Patient appears to be somewhat restless and claims that she is "all over the place" with regards to her emotions and mood. Patient was directable today during conversation however did appear to have an anxious tone. She states that she is having a hard time sleeping at night however does claim that the Seroquel is helping her. She was requesting of her Geodon injected instead of taking up by mouth however was agreeable to have her Seroquel increased. She claimed that she is trying to go to groups however finds some of them not helpful. She claimed to have fair energy during the day. At this time patient denies any suicidal or homicidal ideations intent or plan. Denies any Auditory or visual hallucinations. Patient has been compliant with meds. Mental status exam: General Appearance: Patient appears to be stated age is alert, directable and attempts to cooperate. Patient is fidgeting with her hands during the interview. Behavior: No agitated behavior. Patient appears anxious and directable Speech: Patient's speech is fluent and nonpressured. Mood/Affect: Mood is improving however feels anxious, affect is congruent and constricted. Suicidality/Homicidality: Patient denies having any suicidal or homicidal ideation intent or plan. Perceptions: Patient denies any auditory or visual hallucinations. Though content/process: There is no evidence of any delusional thought content and thought process is tangential/circumstantial. Memory and concentration: AOX3, grossly intact for the purposes of this session Judgment and insight: improving mildly Assessment/Plan: Continue with current diagnosis. Patient continues to meet criteria for inpatient psychiatric admission for symptom stabilization and safety.Patient will be maintained on current psychotropic medication regimen. Will increase Seroquel to 100 mg nightly for insomnia/mood stabilization. Monitor for medication compliance and for any psychotropic medication side effects. Will continue to monitor ongoing response to treatment. Patient claims that she'll likely be discharged on Wednesday to [place] for inpatient rehab.
[2018-12-24] MEDS ORDERED: FLUCONAZOLE 150 MG TAB PO STA (16:03)
[2018-12-24] MEDS: ZIPRASIDONE 20 MG CAP PO SCH (22:04)
[2018-12-24] MEDS: MELATONIN 5 MG TABLET PO SCH (22:04)
[2018-12-24] MEDS: QUEtiapine 100 MG TAB PO SCH (22:04)
[2018-12-25 06:58] VITALS: BP 110/58; PULSE 119; RESP 16; TEMP 97.5
[2018-12-25] MEDS: BENZTROPINE MESYLATE 1 MG TAB PO SCH ×2 (08:54→21:05)
[2018-12-25] MEDS: NICOTINE 21MG/24HR PATCH TRANSDERM SCH (08:54)
[2018-12-25] MEDS: VENLAFAXINE HCL ER 150 MG CAP PO SCH (08:54)
[2018-12-25] MEDS: IBUPROFEN 200 MG TAB PO PRN ×2 (08:56→21:06)
--- NOTE | 2018-12-25 09:55 | P.PN ---
Progress Note - Text Progress Note Date: 12/25/18 Interval history: Patient was seen wandering the hallways and seeing near the nurse's desk was agreeable to speak to pattern chart writer in the office. Patient continues to appear to be having a flight of ideas and was anxious to list off many somatic symptoms that she is feeling including feeling "congested" around her face and her sinuses and also claims that "my pH is off balance" and claims that she would like to speak to medicine about getting Flagyl. Patient was directable today during conversation however did appear to have an anxious tone. Patient stated that she slept better last night with the Seroquel increased and did not get an IM Geodon shot. Patient was asking about different options to have as needed for anxiety when she leaves the hospital. She claimed that she is trying to go to groups and finding them helpful. She claimed to have fair energy during the day. At this time patient denies any suicidal or homicidal ideations intent or plan. Denies any Auditory or visual hallucinations. Patient has been compliant with meds. Mental status exam: General Appearance: Patient appears to be stated age is alert, directable and attempts to cooperate. Patient is fidgeting with her hands during the interview. Behavior: No agitated behavior. Patient appears anxious and directable Speech: Patient's speech is fluent and nonpressured. Mood/Affect: Mood is improving however feels anxious, affect is congruent and constricted. Suicidality/Homicidality: Patient denies having any suicidal or homicidal ideation intent or plan. Perceptions: Patient denies any auditory or visual hallucinations. Though content/process: There is no evidence of any delusional thought content and thought process is tangential/circumstantial. Memory and concentration: AOX3, grossly intact for the purposes of this session Judgment and insight: improving mildly Assessment/Plan: Continue with current diagnosis. Patient continues to meet criteria for inpatient psychiatric admission for symptom stabilization and safety.Patient will be maintained on current psychotropic medication regimen. M onitor for medication compliance and for any psychotropic medication side effects. Will continue to monitor ongoing response to treatment. Patient claims that she'll likely be discharged on Wednesday to [place] for inpatient rehab. We will ask internal medicine to come to speak to patient about her somatic symptoms prior to discharge.
[2018-12-25] MEDS: MAG HYDROX/AL HYDROX/SIMETH 30 ML CUP PO PRN (11:32)
[2018-12-25] MEDS: clonazePAM 1 MG TAB PO PRN ×2 (15:02→21:10)
--- NOTE | 2018-12-25 19:46 | XR ---
EXAMINATION TYPE: XR KUB DATE OF EXAM: 12/25/2018 COMPARISON: 11/27/2018 HISTORY: Abdominal pain TECHNIQUE: 2 views supine FINDINGS: Bowel gas pattern is normal. There is no sign of intestinal obstruction or pneumoperitoneum . There is some calcification over the right mid abdomen that could be a renal calculus that measures 6 mm. Lung bases are clear. Fecal pattern is normal. IMPRESSION: Possible right renal calculus unchanged. Nonacute abdomen.
[2018-12-25] MEDS: MELATONIN 5 MG TABLET PO SCH (21:05)
[2018-12-25] MEDS: ZIPRASIDONE 20 MG CAP PO SCH (21:05)
[2018-12-25] MEDS: QUEtiapine 100 MG TAB PO SCH (21:05)
[2018-12-26] MEDS: VENLAFAXINE HCL ER 150 MG CAP PO SCH (09:18)
[2018-12-26] MEDS: NICOTINE 21MG/24HR PATCH TRANSDERM SCH (09:18)
[2018-12-26] MEDS: BENZTROPINE MESYLATE 1 MG TAB PO SCH (09:19)
[2018-12-26] MEDS: IBUPROFEN 200 MG TAB PO PRN (09:20)
[2018-12-26] MEDS: clonazePAM 1 MG TAB PO PRN (09:20)
--- NOTE | 2018-12-26 09:35 | US ---
EXAMINATION TYPE: US transvaginal plus Doppler DATE OF EXAM: 12/26/2018 COMPARISON: CT 11/27/2018 CLINICAL HISTORY: 33-year-old female increased abdominal pain, teratoma diagnosis. Abdomen, pelvic an d back pain, irregular heavy cycles, 3, para 2, ectopic 1, history of ovarian cysts, history of tubal ligation, history of ectopic with left fallopian tube removed. TECHNIQUE: Transvaginal exam only per ordering physician. Color Doppler and spectral waveform analysi s of the ovarian arteries and veins. Date of LMP: 2 months ago FINDINGS: EXAM MEASUREMENTS: Uterus: 9.7 x 5.2 x 6.4 cm Endometrial Stripe: 1.0 cm Right Ovary: not seen Left Ovary: 4.1 x 3.2 x 3.8 cm 1. Uterus: anteverted, large 9 mm cervical nabothian cyst seen 2. Endometrium: appears wnl 3. Right Ovary: not seen 4. Left Ovary: 3.0 x 2.8 x 3.0cm complex cystic area Spectral, color and waveform doppler imaging shows good arterial and venous flow within the left ov charline; there is no evidence for ovarian torsion in the left ovary. 5. Bilateral Adnexa: wnl 6. Posterior cul-de-sac: small amount of free fluid seen IMPRESSION: 1. The right ovary could not be visualized. 2. A 3.0 cm complex cystic lesion within the left ovary compatible with the ovarian teratoma seen on 11/27/2018. 3. The left ovary is interrogated with Doppler ultrasound. No sonographic evidence for left ovarian t orsion. 4. Small amount of cul-de-sac free fluid likely physiologic.
--- NOTE | 2018-12-26 10:34 | P.OBCN ---
History of Present Illness Consult date: 12/26/18 Reason for consult: ovarian cyst Chief complaint: pelvic pain History of present illness: This is a 33-year-old female 3 para 2011 that presented to the hospital and was admitted for anxiety/mental health issues. Patient had seen me previously in early November with complaints of pelvic pain and had a known ter atoma. Patient has known that this has been here for quite some time. Patient was increasing her complaints of pelvic pain therefore her I was consulted for evaluation. Patient had a abdominal/pelvic CT done on revealing a 3.2 cm teratoma which was seen previously. Ultrasound was performed early this morning revealing a 3 x 2.8 x 3 cm ovarian cyst. On discussion this morning patient states her pain is better. She is noting an increase in vaginal odor and has a significant history of chronic bacterial vaginosis infections. Patient states she is being discharged home from the mental health unit today, and is then heading to [facility] on Wednesday. She is feeling anxious but excited to go to rehab. Review of Systems Constitutional: Denies chills, Denies fever Ears, nose, mouth and throat: Denies headache Cardiovascular: Denies leg edema Respiratory: Denies dyspnea Gastrointestinal: Denies nausea, Denies vomiting Genitourinary: Reports vaginal odor Past Medical History Past Medical History: GERD/Reflux, Thyroid Disorder Additional Past Medical History / Comment(s): murmur, RA, back pain, LOW VITAMIN D, LOW BLOOD SUGAR, parathyroid tumor, Terantina Tumor right lower abd History of Any Multi-Drug Resistant Organisms: None Reported Past Surgical History: Adenoidectomy, Tonsillectomy, Tubal Ligation Additional Past Surgical History / Comment(s): oopherectomy, facial reconstruction, Past Psychological History: Anxiety, Bipolar, Depression Smoking Status: Current every day smoker Past Alcohol Use History: None Reported, Occasional Additional Past Alcohol Use History / Comment(s): stated she quit drinking in April Past Drug Use History: Marijuana, Methamphetamine Medications and Allergies Home Medications Medication Instructions Recorded Confirmed Type Benztropine Mesylate [Cogentin] 1 mg PO BID 56 Days #28 tab 12/23/18 Rx Melatonin 5 mg PO HS 28 Days #28 tablet 12/23/18 Rx Nicotine 21Mg/24Hr Patch [Habitrol] 1 patch TRANSDERM DAILY 28 Days 12/23/18 Rx #20 patch QUEtiapine [SEROquel] 50 mg PO HS PRN 28 Days #28 tab 12/23/18 Rx Venlafaxine HCl ER [Effexor XR] 150 mg PO DAILY 28 Days #28 12/23/18 Rx cap.er.24h Ziprasidone [Geodon] 20 mg PO HS 28 Days #28 cap 12/23/18 Rx metroNIDAZOLE [Flagyl] 500 mg PO BID #14 tab 12/26/18 Rx Allergies Allergy/AdvReac Type Severity Reaction Status Date / Time Bleach (Sodium Hypochlorite) Allergy Rash/Hives Verified 12/08/18 12:09 Exam Osteopathic Statement: *. No significant issues noted on an osteopathic structural exam other than those noted in the History and Physical/Consult. Cardiac exam is performed and the state in general this is a well-nourished well-developed non female in no acute distress breathing is noted to be nonlabored, she is seen in a comfortable term therefore pelvic exam is deferred as ultrasound was done this morning revealing minimal change if any of the ovarian cyst that she has been worried about/complaining of pain about. Results Result Diagrams: 12/09/18 07:45 12/09/18 07:45 Comments: Pelvic ultrasound and prior CAT scan of the abdomen and pelvis are reviewed with the patient. As stated above there was very minimal if any change in ovarian cyst size previously on CAT scan noted to be 3.2 cm, today on pelvic ultrasound measuring 3 x 2.8 x 3 cm. Assessment and Plan (1) Pelvic pain Current Visit: Yes Status: Acute Code(s): R10.2 - PELVIC AND PERINEAL PAIN SNOMED Code(s): 89223782 (2) Teratoma of left ovary Current Visit: No Status: Acute Code(s): D27.1 - BENIGN NEOPLASM OF LEFT OVARY SNOMED Code(s): 821167939 (3) Bacterial vaginosis Current Visit: Yes Status: Acute Code(s): N76.0 - ACUTE VAGINITIS; B96.89 - OTH BACTERIAL AGENTS THE CA[facility]ES [facility] Code(s): 700774851 Plan: Ultrasound and CAT scan her reviewed with patient in detail given she has rehab coming up in a few days and there is minimal change in this dermoid that has been present for many years, we will plan outpatient fu. Alexandr has been transmitted to her from a see of choice in addition and she will start this upon discharge, for her bacterial vaginosis symptoms.
[2018-12-26] MEDS ORDERED: hydrOXYzine PAMOATE 25 MG CAP PO PRN (12:07)
--- NOTE | 2018-12-26 12:16 | P.DS ---
Providers Date of admission: 12/08/18 15:56 Expected date of discharge: 12/26/18 Attending physician: Kobe Ferguson MD Consults: 12/08/18 16:30 Consult Physician Routine Consulting Provider: Antwan Simomns Consult Reason/Comments: H & P and medical care Do you want consulting provider notified?: Yes 12/25/18 20:29 Consult Physician Routine Consulting Provider: Halle Giordano Consult Reason/Comments: New teratoma dx, ongoing abdominal pain, U/S shows increased tumor size Do you want consulting provider notified?: Yes Primary care physician: Stated None Plan - Discharge Summary Discharge Rx Participant: No New Discharge Prescriptions: New Benztropine Mesylate [Cogentin] 1 mg PO BID 56 Days #28 tab Venlafaxine HCl ER [Effexor XR] 150 mg PO DAILY 28 Days #28 cap.er.24h Ziprasidone [Geodon] 20 mg PO HS 28 Days #28 cap Nicotine 21Mg/24Hr Patch [Habitrol] 1 patch TRANSDERM DAILY 28 Days #20 patch Melatonin 5 mg PO HS 28 Days #28 tablet QUEtiapine [SEROquel] 50 mg PO HS PRN 28 Days #28 tab PRN Reason: Insomnia Loratadine [Claritin] 10 mg PO DAILY PRN #30 tab PRN Reason: Congestion QUEtiapine [SEROquel] 25 mg PO DAILY #30 tab QUEtiapine [SEROquel] 100 mg PO HS #30 tab hydrOXYzine PAMOATE [Vistaril] 25 mg PO QID PRN #30 cap PRN Reason: Anxiety Changed metroNIDAZOLE [Flagyl] 500 mg PO BID #14 tab Discharge Medication List Benztropine Mesylate [Cogentin] 1 mg PO BID 56 Days #28 tab 12/23/18 [Rx] Melatonin 5 mg PO HS 28 Days #28 tablet 12/23/18 [Rx] Nicotine 21Mg/24Hr Patch [Habitrol] 1 patch TRANSDERM DAILY 28 Days #20 patch 12/23/18 [Rx] QUEtiapine [SEROquel] 50 mg PO HS PRN 28 Days #28 tab 12/23/18 [Rx] Venlafaxine HCl ER [Effexor XR] 150 mg PO DAILY 28 Days #28 cap.er.24h 12/23/18 [Rx] Ziprasidone [Geodon] 20 mg PO HS 28 Days #28 cap 1115/19 [Rx] Loratadine [Claritin] 10 mg PO DAILY PRN #30 tab 12/26/18 [Rx] QUEtiapine [SEROquel] 25 mg PO DAILY #30 tab 12/26/18 [Rx] QUEtiapine [SEROquel] 100 mg PO HS #30 tab 12/26/18 [Rx] hydrOXYzine PAMOATE [Vistaril] 25 mg PO QID PRN #30 cap 12/26/18 [Rx] metroNIDAZOLE [Flagyl] 500 mg PO BID #14 tab 12/26/18 [Rx] Follow up Appointment(s)/Referral(s): [facility] [Outside] - 12/28/18 10:45 am None,Stated [Primary Care Provider] - 1-2 days [facility] [NON-STAFF] - 1 Week Activity/Diet/Wound Care/Special Instructions: Activity and diet as tolerated. No guns or weapons in the home. Refrain from alcohol and street drugs not prescribed by your physicians. Take all medications as prescribed, and attend all follow up appointments as scheduled. If in need of medication refills, please go to your Primary care physician, or your out patient psychiatric provider. If in crisis, please go to the nearest ER for an evaluation, or call .
--- NOTE | 2018-12-26 12:16 | US ---
EXAMINATION TYPE: US kidneys/renal and bladder DATE OF EXAM: 12/26/2018 COMPARISON: CT 11/27/2018 CLINICAL HISTORY: 33 year-old female bilateral nephrolithiasis. Abdomen, pelvic and back pain, histor y of kidney stones TECHNIQUE: Multiple sonographic images of the kidneys and bladder are obtained. FINDINGS: EXAM MEASUREMENTS: Right Kidney: 9.4 x 4.5 x 4.7 cm Left Kidney: 10.4 x 4.6 x 4.3 cm Right Kidney: no hydronephrosis, 0.8cm echogenic shadowing stone mid pole Left Kidney: no hydronephrosis. A couple small nonobstructive calculi seen on CT not demonstrated son ographically. Bladder: Under distention limits evaluation. IMPRESSION: 1. No hydronephrosis. 2. 8 mm nonobstructive right renal calculus. 3. The 2 small nonobstructive left renal calculi seen on CT are not sonographically apparent.
[2018-12-27] MEDS ORDERED: QUEtiapine 25 MG TAB PO SCH (09:00)
[2018-12-27 13:57] LABS: C. trachomatis,PCR Negative (Neg,Equiv); Chlamydia trachomatis Source Urine
[2018-12-27 14:06] LABS: N. gonorrhoeae,PCR Negative (Neg,Equiv); Neisseria Source Urine
== END 2018-12-26 12:55 | disposition home or self-care (01) | DRG 885 ==
LOC: EC 11:11 → 3MHU 15:56
PROVIDERS: ADMIT Psychiatry & Neurology Psychiatry; ATTEND Psychiatry & Neurology Psychiatry
DX: F31.9 Bipolar disorder, unspecified (principal); F10.99 Alcohol use, unspecified with unspecified alcohol-induced disorder; R45.851 Suicidal ideations; D27.1 Benign neoplasm of left ovary; F11.99 Opioid use, unspecified with unspecified opioid-induced disorder; F12.99 Cannabis use, unspecified with unspecified cannabis-induced disorder; F15.99 Other stimulant use, unspecified with unspecified stimulant-induced disorder; F17.200 Nicotine dependence, unspecified, uncomplicated; F43.10 Post-traumatic stress disorder, unspecified; F60.3 Borderline personality disorder; G47.00 Insomnia, unspecified; K59.00 Constipation, unspecified; N76.0 Acute vaginitis; Z59.0 Homelessness; Z65.3 Problems related to other legal circumstances; Z79.899 Other long term (current) drug therapy; Z81.1 Family history of alcohol abuse and dependence; Z91.410 Personal history of adult physical and sexual abuse; Z91.011 Allergy to milk products; Z91.048 Other nonmedicinal substance allergy status
CPT/HCPCS: 74018; 76770; 76830; 80053; 80061; 80306; 81001; 81025; 82075; 82248; 83036; 84443; 85025; 87491; 87591; 93976; 99285

== ENCOUNTER 2018-12-31 20:32 | Emergency (ER) | payer OTHER ==
[2018-12-31 21:02] VITALS: PULSE 80; TEMP 97.8
[2018-12-31 21:22] LABS: Amphetamine Screen,Urine Not Detected (NotDetected); Barbiturate Screen,Urine Not Detected (NotDetected); Benzodiazepines Screen,Urine Not Detected (NotDetected); Cocaine Screen,Urine Not Detected (NotDetected); Methadone Screen, Urine Not Detected (NotDetected); Opiate Screen,Urine Not Detected (NotDetected); Oxycodone Screen, Urine Not Detected (NotDetected); Phencyclidine Screen,Urine Not Detected (NotDetected); Tricyclic Antidepressant,Urine Detected (NotDetected); Urn Cannabinoid Scrn Detected (NotDetected)
--- NOTE | 2018-12-31 21:24 | ED ---
Psych HPI - General Chief Complaint: Psychiatric Symptoms Stated Complaint: Suicidal Time Seen by Provider: 12/31/18 21:02 Source: patient, EMS Mode of arrival: EMS - History of Present Illness Initial Comments: This patient is a 33-year-old woman who presents to be evaluated for depression and some suicidal thoughts. She relates that she has been at [facility] where she is being treated for methamphetamine use. The patient states that she had been in the hospital here prior to that where she had been seen for suicidal thoughts. The patient states that she just has not really felt much better. The patient also had a separate complaint that about 5 days ago during intercourse she believes she had a injury to the labia. She had some sharp pains at sexual activity. There is no vaginal discharge. MD Complaint: suicidal ideation -: week(s) Associated Psychiatric Symptoms: depression, suicidal ideation History of same: Yes Quality: constant Improves With: none Worsens With: none Associated Symptoms: denies other symptoms - Related Data Previous Rx's Medication Instructions Recorded Benztropine Mesylate [Cogentin] 1 mg PO BID 56 Days #28 tab 12/23/18 Melatonin 5 mg PO HS 28 Days #28 tablet 12/23/18 Nicotine 21Mg/24Hr Patch [Habitrol] 1 patch TRANSDERM DAILY 28 Days 12/23/18 #20 patch Venlafaxine HCl ER [Effexor XR] 150 mg PO DAILY 28 Days #28 12/23/18 cap.er.24h Ziprasidone [Geodon] 20 mg PO HS 28 Days #28 cap 12/23/18 Loratadine [Claritin] 10 mg PO DAILY PRN #30 tab 12/26/18 QUEtiapine [SEROquel] 25 mg PO DAILY #30 tab 12/26/18 QUEtiapine [SEROquel] 100 mg PO HS #30 tab 12/26/18 hydrOXYzine PAMOATE [Vistaril] 25 mg PO QID PRN #120 cap 12/26/18 metroNIDAZOLE [Flagyl] 500 mg PO BID #14 tab 12/26/18 Allergies Allergy/AdvReac Type Severity Reaction Status Date / Time Bleach (Sodium Hypochlorite) Allergy Rash/Hives Verified 12/31/18 21:03 Review of Systems ROS Statement: Those systems with pertinent positive or pertinent negative responses have been documented in the HPI. ROS Other: All systems not noted in ROS Statement are negative. Constitutional: Denies: fever, chills Respiratory: Denies: cough, dyspnea Cardiovascular: Denies: chest pain, palpitations, syncope Gastrointestinal: Denies: abdominal pain, vomiting, diarrhea Genitourinary: Denies: dysuria, hematuria Musculoskeletal: Denies: back pain Skin: Denies: rash Neurological: Denies: headache Psychiatric: Reports: depression, suicidal thoughts. Denies: auditory hallucinations, visual hallucinations, homicidal thoughts Past Medical History Past Medical History: GERD/Reflux, Thyroid Disorder Additional Past Medical History / Comment(s): murmur, RA, back pain, LOW VITAMIN D, LOW BLOOD SUGAR, parathyroid tumor, Terantina Tumor right lower abd History of Any Multi-Drug Resistant Organisms: None Reported Past Surgical History: Adenoidectomy, Tonsillectomy, Tubal Ligation Additional Past Surgical History / Comment(s): oopherectomy, facial reconstruction, Past Psychological History: Anxiety, Bipolar, Depression Smoking Status: Current every day smoker Past Alcohol Use History: None Reported, Occasional Past Drug Use History: Marijuana, Methamphetamine General Exam Limitations: no limitations General appearance: alert, in no apparent distress Head exam: Present: atraumatic, normocephalic Eye exam: Present: normal appearance. Absent: scleral icterus, conjunctival injection ENT exam: Present: normal oropharynx Respiratory exam: Present: normal lung sounds bilaterally. Absent: respiratory distress, wheezes, rales, rhonchi, stridor Cardiovascular Exam: Present: regular rate, normal rhythm, normal heart sounds. Absent: systolic murmur, diastolic murmur, rubs, gallop GI/Abdominal exam: Present: soft. Absent: distended, tenderness, guarding, rebound, rigid, mass External exam: Present: other (There is an abrasion to the left labia majora. ZEV Ren present). Absent: erythema, swelling, lesions, lacerations, ecchymosis Speculum exam: Present: other (Declines speculum exam) Extremities exam: Present: normal inspection, normal capillary refill Back exam: Absent: CVA tenderness (R), CVA tenderness (L) Neurological exam: Present: alert Psychiatric exam: Present: depressed, suicidal ideation. Absent: agitated, anxious, flat affect, manic, homicidal ideation Skin exam: Present: warm, dry, intact, normal color. Absent: rash Course Vital Signs 11/23/19 20:56 Temperature 97.8 F Pulse Rate 80 Respiratory 18 Rate Blood Pressure 114/70 O2 Sat by Pulse 99 Oximetry Medical Decision Making - Medical Decision Making Patient's seen by [facility] and cleared for return to [place] to continue her treatment for methamphetamine use. The patient did request gynecologic exam. But she did refuse the speculum part of the exam and cultures. 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 She is scheduled to follow-up there on released from [facility]. - Lab Data Lab Results 12/31/18 12/31/18 Range/Units 20:23 20:23 Urine HCG, Qual Not Detected (Not Detectd) Urine Opiates Screen Not Detected (NotDetected) Ur Oxycodone Screen Not Detected (NotDetected) Urine Methadone Screen Not Detected (NotDetected) Ur Propoxyphene Screen Not Detected (NotDetected) Ur Barbiturates Screen Not Detected (NotDetected) U Tricyclic Antidepress Detected H (NotDetected) Ur Phencyclidine Scrn Not Detected (NotDetected) Ur Amphetamines Screen Not Detected (NotDetected) U Methamphetamines Scrn Not Detected (NotDetected) U Benzodiazepines Scrn Not Detected (NotDetected) Urine Cocaine Screen Not Detected (NotDetected) U Marijuana (THC) Screen Detected H (NotDetected) Disposition Clinical Impression: Mood disorder Disposition: OTHER INSTITUTION NOT DEFINED Condition: Good Instructions (If sedation given, give patient instructions): Mood Disorders (ED) Is patient prescribed a controlled substance at d/c from ED?: No Referrals: None,Stated [Primary Care Provider] - 1-2 days - Out of Hospital Transfer - Req. Specs Out of Hospital Transfer - Requested Specifics: Other Non-Acute ([place])
[2019-01-01 01:50] VITALS: BP 137/68; RESP 17
== END 2019-01-01 01:50 | disposition other institution (70) ==
LOC: EC 20:32
DX: F31.9 Bipolar disorder, unspecified (principal); R45.851 Suicidal ideations; F15.90 Other stimulant use, unspecified, uncomplicated; F41.9 Anxiety disorder, unspecified; F17.200 Nicotine dependence, unspecified, uncomplicated; Z91.048 Other nonmedicinal substance allergy status
CPT/HCPCS: 80306; 81025; 82075; 99285

== ENCOUNTER 2020-12-07 13:15 | Emergency (ER) | payer OTHER ==
[2020-12-07 13:22] VITALS: TEMP 97.7
[2020-12-07] MEDS ORDERED: ACETAMINOPHEN TAB 325 MG TAB PO STA (14:19)
--- NOTE | 2020-12-07 14:21 | ED ---
General Adult HPI - General Chief complaint: Abdominal Pain Stated complaint: Abd Pain Time Seen by Provider: 12/07/20 14:03 Source: patient, family (SO at bedside), RN notes reviewed, old records reviewed Mode of arrival: wheelchair Limitations: no limitations - History of Present Illness Initial comments: 35-year-old female, alert and oriented 4, poor historian, presents to the emergency room with complaints of left lower quadrant pain and suprapubic pain for 2 days. Patient states that yesterday she developed some vaginal bleeding. She states that she had her period this month. She states that she has had a history of tubal ligation and was told her "tubes became untied". She states she did have an ovary removed but could not remember what side. She denies nausea vomiting diarrhea or dysuria. Denies any vaginal discharge. She states that she has been spotting Patient states that she is a smoker but a pack will last her 3 days. -: days(s) (2) Location: left (LLQ pain) Severity scale (1-10): 10 Quality: sharp Consistency: constant Improves with: none Worsens with: none Associated Symptoms: other (vaginal bleeding) Treatments Prior to Arrival: none - Related Data Previous Rx's Medication Instructions Recorded Benztropine Mesylate [Cogentin] 1 mg PO BID 56 Days #28 tab 12/23/18 Melatonin 5 mg PO HS 28 Days #28 tablet 12/23/18 Nicotine 21Mg/24Hr Patch [Habitrol] 1 patch TRANSDERM DAILY 28 Days 12/23/18 #20 patch Venlafaxine HCl ER [Effexor XR] 150 mg PO DAILY 28 Days #28 12/23/18 cap.er.24h Ziprasidone [Geodon] 20 mg PO HS 28 Days #28 cap 12/23/18 Loratadine [Claritin] 10 mg PO DAILY PRN #30 tab 12/26/18 QUEtiapine [SEROquel] 25 mg PO DAILY #30 tab 12/26/18 QUEtiapine [SEROquel] 100 mg PO HS #30 tab 12/26/18 hydrOXYzine pamoate [Vistaril] 25 mg PO QID PRN #120 cap 12/26/18 metroNIDAZOLE [Flagyl] 500 mg PO BID #14 tab 12/26/18 Allergies Allergy/AdvReac Type Severity Reaction Status Date / Time Bleach (Sodium Hypochlorite) Allergy Rash/Hives Verified 12/07/20 13:19 Review of Systems ROS Statement: Those systems with pertinent positive or pertinent negative responses have been documented in the HPI. ROS Other: All systems not noted in ROS Statement are negative. Past Medical History Past Medical History: GERD/Reflux, Thyroid Disorder Additional Past Medical History / Comment(s): murmur, RA, back pain, LOW VITAMIN D, LOW BLOOD SUGAR, parathyroid tumor, Terantina Tumor right lower abd History of Any Multi-Drug Resistant Organisms: None Reported Past Surgical History: Adenoidectomy, Tonsillectomy, Tubal Ligation Additional Past Surgical History / Comment(s): oopherectomy, facial reconstruction, Past Psychological History: Anxiety, Bipolar, Depression Smoking Status: Current every day smoker Past Alcohol Use History: None Reported Past Drug Use History: None Reported, Marijuana, Methamphetamine General Exam Limitations: no limitations General appearance: alert, in no apparent distress Head exam: Present: atraumatic, normocephalic, normal inspection Eye exam: Present: normal appearance, PERRL, EOMI. Absent: scleral icterus, conjunctival injection, periorbital swelling Respiratory exam: Present: normal lung sounds bilaterally. Absent: respiratory distress, wheezes, rales, rhonchi, stridor, chest wall tenderness, accessory muscle use Cardiovascular Exam: Present: regular rate, normal rhythm, normal heart sounds. Absent: systolic murmur, diastolic murmur, rubs, gallop, clicks GI/Abdominal exam: Present: soft, tenderness (Left lower quadrant). Absent: normal bowel sounds Extremities exam: Present: normal inspection, full ROM, normal capillary refill. Absent: tenderness, pedal edema, joint swelling, calf tenderness Back exam: Present: normal inspection, full ROM. Absent: tenderness, CVA tenderness (R), CVA tenderness (L), rash noted Neurological exam: Present: alert, oriented X3 Psychiatric exam: Present: normal affect, normal mood Skin exam: Present: warm, dry, intact, normal color. Absent: rash Course Vital Signs 12/07/20 12/07/20 13:19 16:41 Temperature 97.7 F Pulse Rate 90 77 Respiratory 20 18 Rate Blood Pressure 127/63 131/72 O2 Sat by Pulse 100 95 Oximetry Medical Decision Making - Medical Decision Making Transvaginal ultrasound shows no evidence of ovarian torsion. There is no evidence of torsion with good arterial and venous flow. 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 UA shows cloudy urine with large amount of blood in no bacteria no nitrites. Urine test is negative. KUB x-ray shows a right renal calculus without change. This could be related to a passed kidney stone. Patient's pain is improved after Tylenol and Toradol. Upon reexamination the patient's abdomen remains soft. She is hemodynamically stable. She is directed to follow up with her rough rounder machine for continuation of care doctor and return to the emergency room with any new or worsening symptoms.. Case discussed with Dr. Coleman - Lab Data Lab Results 12/07/20 12/07/20 Range/Units 14:29 14:29 Urine Color Yellow Urine Appearance Cloudy H (Clear) Urine pH 7.5 (5.0-8.0) Ur Specific [place] 1.023 (1.001-1.035) Urine Protein Negative (Negative) Urine Glucose (UA) Negative (Negative) Urine Ketones Negative (Negative) Urine Blood Large H (Negative) Urine Nitrite Negative (Negative) Urine Bilirubin Negative (Negative) Urine Urobilinogen <2.0 (<2.0) mg/dL Ur Leukocyte Esterase Negative (Negative) Urine RBC 111 H (0-5) /hpf Urine WBC 2 (0-5) /hpf Ur Squamous Epith Cells 2 (0-4) /hpf Amorphous Sediment Rare H (None) /hpf Urine Mucus Rare H (None) /hpf Urine HCG, Qual Not Detected (Not Detectd) Disposition Clinical Impression: Abdominal pain Disposition: HOME SELF-CARE Condition: Good Instructions (If sedation given, give patient instructions): Abdominal Pain (ED) Additional Instructions: Follow-up with your rough rounder machine this week. Return if any new or worsening symptoms. Take Motrin and/or Tylenol as needed for pain. Is patient prescribed a controlled substance at d/c from ED?: No Referrals: None,Stated [Primary Care Provider] - 1-2 days Time of Disposition: 16:21
[2020-12-07 15:12] LABS: Amorphous Sediment,Urine Rare /hpf; Appearance,Urine Cloudy (Clear); Bilirubin,Urine Negative (Negative); Blood,Urine Large (Negative); Color,Urine Yellow; Glucose,Urine (UA) Negative (Negative); Ketones,Urine Negative (Negative); Leukocyte Esterase,Urine Negative (Negative); Mucus,Urine Rare /hpf; Nitrite,Urine Negative (Negative); PH, Urine 7.5 (5.0-8.0); Protein,Urine Negative (Negative); RBC,Urine 111 /hpf (0-5); Specific Gravity,Urine 1.023 (1.001-1.035); Squamous Epithelial Cell,Urine 2 /hpf (0-4); Urobilinogen,Urine <2.0 mg/dL (<2.0); WBC,Urine 2 /hpf (0-5)
--- NOTE | 2020-12-07 15:44 | US ---
EXAMINATION TYPE: US transvaginal DATE OF EXAM: 12/07/2020 COMPARISON: NONE CLINICAL HISTORY: llq rlq pain, vag bleeding. pelvic pain, worse on the left. history of tubal ligati on. history of ectopic with left fallopian tube removal TECHNIQUE: Transvaginal (TV). Date of LMP: beginning of November 2020 EXAM MEASUREMENTS: Uterus: 9.1 x 5.0 x 6.0 cm Endometrial Stripe: 0.6 cm Right Ovary: 2.9 x 1.6 x 2.8 cm Left Ovary: unable to visualize 1. Uterus: Anteverted Nabothian cysts, largest = 1.0cm 2. Endometrium: wnl 3. Right Ovary: follicles noted 4. Left Ovary: Obscured by overlying bowel gas Spectral, color and waveform doppler imaging shows good arterial and venous flow within the right o vary, there is no evidence for ovarian torsion. 5. Bilateral Adnexa: small amount of free fluid right adnexa 6. Posterior cul-de-sac: wnl IMPRESSION: Tiny amount of free fluid on the right side is probably physiologic. No adnexal mass. Normal uterus. No evidence of ovarian torsion.
--- NOTE | 2020-12-07 16:02 | XR ---
EXAMINATION TYPE: XR KUB DATE OF EXAM: 12/07/2020 COMPARISON: 12/25/2018 HISTORY: Abdominal pain TECHNIQUE: 2 views FINDINGS: There is no sign of intestinal obstruction or pneumoperitoneum. There is 4 mm calculus over the right kidney. There is no evidence of a mass. Lung bases are clear. Fecal pattern is normal. IMPRESSION: Nonacute abdomen. Right renal calculus without change.
[2020-12-07] MEDS ORDERED: KETOROLAC 15 MG/ML 1 ML VIAL IM STA (16:20)
[2020-12-07 16:42] VITALS: BP 131/72; PULSE 77; RESP 18
== END 2020-12-07 16:42 | disposition home or self-care (01) ==
LOC: EC 13:15
DX: R10.32 Left lower quadrant pain (principal); N93.9 Abnormal uterine and vaginal bleeding, unspecified; F17.200 Nicotine dependence, unspecified, uncomplicated; Z91.048 Other nonmedicinal substance allergy status; Z90.721 Acquired absence of ovaries, unilateral
CPT/HCPCS: 81001; 81025; 74018; 93976; 76830; 99284; 96372; J1885

== ENCOUNTER 2021-06-11 01:37 | Emergency (ER) | payer OTHER ==
[2021-06-11 01:45] VITALS: TEMP 98.1
--- NOTE | 2021-06-11 02:16 | ED ---
General Adult HPI - General Chief complaint: Abdominal Pain Stated complaint: Chest/Abdominal Pain Time Seen by Provider: 06/11/21 02:03 Source: patient Mode of arrival: ambulatory - History of Present Illness Initial comments: This patient is a 36-year-old woman who presents to have evaluation of left upper quadrant and left flank pain. She states that it had come on a couple of hours ago area prior to that she had eaten some ice cream. -: hour(s) Location: abdomen Consistency: constant Improves with: none Worsens with: none - Related Data Previous Rx's Medication Instructions Recorded Benztropine Mesylate [Cogentin] 1 mg PO BID 56 Days #28 tab 12/23/18 Melatonin 5 mg PO HS 28 Days #28 tablet 12/23/18 Nicotine 21Mg/24Hr Patch [Habitrol] 1 patch TRANSDERM DAILY 28 Days 12/23/18 #20 patch Venlafaxine HCl ER [Effexor XR] 150 mg PO DAILY 28 Days #28 12/23/18 cap.er.24h Ziprasidone [Geodon] 20 mg PO HS 28 Days #28 cap 12/23/18 Loratadine [Claritin] 10 mg PO DAILY PRN #30 tab 12/26/18 QUEtiapine [SEROquel] 25 mg PO DAILY #30 tab 12/26/18 QUEtiapine [SEROquel] 100 mg PO HS #30 tab 12/26/18 hydrOXYzine pamoate [Vistaril] 25 mg PO QID PRN #120 cap 12/26/18 metroNIDAZOLE [Flagyl] 500 mg PO BID #14 tab 12/26/18 Famotidine [Pepcid] 20 mg PO BID #14 tablet 06/11/21 Allergies Allergy/AdvReac Type Severity Reaction Status Date / Time Bleach (Sodium Hypochlorite) Allergy Rash/Hives Verified 06/11/21 01:45 Review of Systems ROS Statement: Those systems with pertinent positive or pertinent negative responses have been documented in the HPI. ROS Other: All systems not noted in ROS Statement are negative. Constitutional: Denies: fever, chills Respiratory: Denies: cough, dyspnea Cardiovascular: Denies: chest pain, palpitations, edema Gastrointestinal: Reports: abdominal pain, nausea. Denies: vomiting, diarrhea, constipation, melena, hematochezia Genitourinary: Denies: dysuria, hematuria, discharge, abnormal menses Musculoskeletal: Denies: back pain Skin: Denies: rash Neurological: Denies: headache, weakness, numbness Past Medical History Past Medical History: GERD/Reflux, Thyroid Disorder Additional Past Medical History / Comment(s): murmur, RA, back pain, LOW VITAMIN D, LOW BLOOD SUGAR, parathyroid tumor, Terantina Tumor right lower abd History of Any Multi-Drug Resistant Organisms: None Reported Past Surgical History: Adenoidectomy, Tonsillectomy, Tubal Ligation Additional Past Surgical History / Comment(s): oopherectomy, facial reconstruction, Past Psychological History: Anxiety, Bipolar, Depression Smoking Status: Current every day smoker Past Alcohol Use History: None Reported Past Drug Use History: None Reported, Marijuana, Methamphetamine General Exam General appearance: alert, in no apparent distress Head exam: Present: atraumatic, normocephalic Eye exam: Present: normal appearance. Absent: scleral icterus, conjunctival injection Respiratory exam: Present: normal lung sounds bilaterally. Absent: respiratory distress, wheezes, rales, rhonchi, stridor Cardiovascular Exam: Present: regular rate, normal rhythm, normal heart sounds. Absent: systolic murmur, diastolic murmur, rubs, gallop GI/Abdominal exam: Present: soft, tenderness. Absent: distended, guarding, rebound, rigid, mass, pulsatile mass Extremities exam: Present: normal inspection, normal capillary refill. Absent: pedal edema, calf tenderness Back exam: Present: normal inspection Neurological exam: Present: alert Skin exam: Present: warm, dry, intact, normal color. Absent: rash Course Vital Signs 06/11/21 01:41 Temperature 98.1 F Pulse Rate 76 Respiratory 19 Rate Blood Pressure 124/73 O2 Sat by Pulse 100 Oximetry EKG Findings - EKG Results: EKG: interpreted by TERRY BOYD, sinus rhythm (Rate 67 bpm), normal axis, normal QRS, normal ST/T, no acute changes Medical Decision Making - Lab Data Result diagrams: 06/11/21 03:02 06/11/21 03:02 Lab Results 06/11/21 06/11/21 06/11/21 Range/Units 03:02 03:02 03:02 WBC 7.7 (3.8-10.6) k/uL RBC 4.28 (3.80-5.40) m/uL Hgb 13.2 (11.4-16.0) gm/dL Hct 39.9 (34.0-46.0) % MCV 93.4 (80.0-100.0) fL MCH 30.9 (25.0-35.0) pg MCHC 33.1 (31.0-37.0) g/dL RDW 13.1 (11.5-15.5) % Plt Count 308 (150-450) k/uL MPV 8.3 Neutrophils % 54 % Lymphocytes % 33 % Monocytes % 6 % Eosinophils % 4 % Basophils % 0 % Neutrophils # 4.1 (1.3-7.7) k/uL Lymphocytes # 2.5 (1.0-4.8) k/uL Monocytes # 0.5 (0-1.0) k/uL Eosinophils # 0.3 (0-0.7) k/uL Basophils # 0.0 (0-0.2) k/uL Sodium 136 L (137-145) mmol/L Potassium 4.4 (3.5-5.1) mmol/L Chloride 106 (98-107) mmol/L Carbon Dioxide 25 (22-30) mmol/L Anion Gap 5 mmol/L BUN 15 (7-17) mg/dL Creatinine 0.74 (0.52-1.04) mg/dL Est GFR (CKD-EPI)AfAm >90 (>60 ml/min/1.73 sqM) Est GFR (CKD-EPI)NonAf >90 (>60 ml/min/1.73 sqM) Glucose 92 (74-99) mg/dL Calcium 8.9 (8.4-10.2) mg/dL Total Bilirubin 0.3 (0.2-1.3) mg/dL AST 19 (14-36) U/L ALT 13 (4-34) U/L Alkaline Phosphatase 57 (38-126) U/L Total Protein 6.6 (6.3-8.2) g/dL Albumin 3.8 (3.5-5.0) g/dL Amylase 78 (30-110) U/L Lipase 76 (23-300) U/L Urine Color Yellow Urine Appearance Clear (Clear) Urine pH 6.5 (5.0-8.0) Ur Specific [place] 1.022 (1.001-1.035) Urine Protein Negative (Negative) Urine Glucose (UA) Negative (Negative) Urine Ketones Negative (Negative) Urine Blood Negative (Negative) Urine Nitrite Negative (Negative) Urine Bilirubin Negative (Negative) Urine Urobilinogen <2.0 (<2.0) mg/dL Ur Leukocyte Esterase Negative (Negative) Disposition Clinical Impression: Ovarian cyst, Abdominal pain Disposition: HOME SELF-CARE Condition: Good Instructions (If sedation given, give patient instructions): Abdominal Pain (ED) Prescriptions: Famotidine [Pepcid] 20 mg PO BID #14 tablet Is patient prescribed a controlled substance at d/c from ED?: No Referrals: None,Stated [Primary Care Provider] - 1-2 days
[2021-06-11 03:21] LABS: Basophils % (A) 0 %; Eosinophils # (A) 0.3 k/uL (0-0.7); Eosinophils % (A) 4 %; HCT 39.9 % (34.0-46.0); HGB 13.2 gm/dL (11.4-16.0); Lymphocytes # (A) 2.5 k/uL (1.0-4.8); Lymphocytes % (A) 33 %; MCH 30.9 pg (25.0-35.0); MCHC 33.1 g/dL (31.0-37.0); MCV 93.4 fL (80.0-100.0); Mean Platelet Volume 8.3; Monocytes # (A) 0.5 k/uL (0-1.0); Monocytes % (A) 6 %; Neutrophils # (A) 4.1 k/uL (1.3-7.7); Neutrophils % (A) 54 %; Platelet Count 308 k/uL (150-450); RBC 4.28 m/uL (3.80-5.40); RDW 13.1 % (11.5-15.5); WBC 7.7 k/uL (3.8-10.6)
[2021-06-11 03:30] LABS: Appearance,Urine Clear (Clear); Bilirubin,Urine Negative (Negative); Blood,Urine Negative (Negative); Color,Urine Yellow; Glucose,Urine (UA) Negative (Negative); Ketones,Urine Negative (Negative); Leukocyte Esterase,Urine Negative (Negative); Nitrite,Urine Negative (Negative); PH, Urine 6.5 (5.0-8.0); Protein,Urine Negative (Negative); Specific Gravity,Urine 1.022 (1.001-1.035); Urobilinogen,Urine <2.0 mg/dL (<2.0)
[2021-06-11 03:39] LABS: ALT 13 U/L (4-34); AST 19 U/L (14-36); African American GFR (CKD) >90 (>60 ml/min/1.73 sqM); Albumin 3.8 g/dL (3.5-5.0); Alkaline Phosphatase 57 U/L (38-126); Amylase 78 U/L (30-110); Anion Gap 5 mmol/L; Blood Urea Nitrogen 15 mg/dL (7-17); Calcium 8.9 mg/dL (8.4-10.2); Carbon Dioxide 25 mmol/L (22-30); Chloride 106 mmol/L (98-107); Glucose 92 mg/dL (74-99); Lipase 76 U/L (23-300); Non-African American GFR(CKD) >90 (>60 ml/min/1.73 sqM); Potassium 4.4 mmol/L (3.5-5.1); Sodium 136 mmol/L (137-145); Total Bilirubin 0.3 mg/dL (0.2-1.3); Total Protein 6.6 g/dL (6.3-8.2)
[2021-06-11] MEDS ORDERED: KETOROLAC 15 MG/ML 1 ML VIAL IVP STA (03:59)
--- NOTE | 2021-06-11 04:21 | CT ---
EXAMINATION TYPE: CT abdomen pelvis wo con DATE OF EXAM: 06/11/2021 COMPARISON: 11/27/2018 HISTORY: LUQ/left flank pain. prior on PACS CT DLP: 635.4 mGycm Automated exposure control for dose reduction was used. Images obtained from the diaphragm to the floor the pelvis with no contrast. Lung bases are clear of infiltrate. There is no pleural effusion. Heart size is normal. No pericardia l effusion. Liver spleen stomach appear intact. Bile duct are not dilated. There is no pancreatic mass. Gallbladd er appears normal. There is no adrenal mass. Kidneys have normal size and contour. There is no hydronephrosis. There is 7 mm calculus lateral right kidney. There is no retroperitoneal adenopathy. The bladder distends smoo thly. Uterus is anteverted. No free fluid in the pelvis. No internal hernia. Appendix is posterior an d appears normal. There is rounded 4.5 cm mixed density mass in the pelvis that is probably arising f rom the right ovary and contains fat and soft tissue and calcium and consistent with dermoid tumor. T his appears to be arising from the left ovary which is overall enlarged and measures 9 cm in length. There is likely cyst on the left ovary that measures 4.8 cm. There is no mesenteric edema. No ascites or free air. No sign of a bowel obstruction. The lumbar vertebrae have normal alignment. No compression fracture. There is narrowing at L5-S1 disc space. Bony pelvis is intact. The hip joints are intact. 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 There i s a new large left ovarian cyst compared to old exam. This could be confirmed with ultrasound. Nonobstructing right renal calculus without change.
[2021-06-11] MEDS ORDERED: MAG HYDROX/AL HYDROX/SIMETH 30 ML, HYOSCYAMINE ELIXIR 10 ML, LIDOCAINE VISCOUS 2% 10 ML PO STA ×3 (05:43)
[2021-06-11 06:12] VITALS: BP 114/78; PULSE 78; RESP 16
== END 2021-06-11 06:12 | disposition home or self-care (01) ==
LOC: EC 01:37
DX: N83.202 Unspecified ovarian cyst, left side (principal); F17.200 Nicotine dependence, unspecified, uncomplicated; Z91.048 Other nonmedicinal substance allergy status
CPT/HCPCS: 36415; 80053; 82150; 83690; 85025; 81003; 74176; 99284; 96374; J1885

== ENCOUNTER 2021-12-04 | Emergency (ER) | payer OTHER ==
[2021-12-04 00:04] VITALS: BP 129/65; PULSE 100; RESP 20; TEMP 97.9
[2021-12-04] MEDS ORDERED: KETOROLAC 15 MG/ML 1 ML VIAL IM STA (00:55)
[2021-12-04] MEDS ORDERED: AMOXICILLIN 875 MG TAB PO STA (01:00)
[2021-12-04] MEDS ORDERED: OFLOXACIN 0.3% OPHTH DROPS 5 ML BOTTLE RIGHT EAR STA (01:00)
--- NOTE | 2021-12-04 01:05 | ED ---
ENT HPI - General Chief complaint: ENT Stated complaint: Rt Ear Pain Time Seen by Provider: 12/04/21 00:05 Source: patient Mode of arrival: ambulatory Limitations: no limitations - History of Present Illness Initial comments: 36-year-old female presents to the emergency department with right ear pain. States that she's had upper respiratory symptoms which include a mild cough, nasal congestion and sore throat for the past couple of days. Began having intense right ear pain earlier today. Denies any fevers. No ear drainage. Does admit to muffled hearing. Pain extends down the anterior aspect of the patient's right neck. Patient did take Motrin and Tylenol at home for her symptoms however had no relief. 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 Denies any headache or neck pain. No other alleviating, precipitating or modifying factors - Related Data Previous Rx's Medication Instructions Recorded Benztropine Mesylate [Cogentin] 1 mg PO BID 56 Days #28 tab 12/23/18 Melatonin 5 mg PO HS 28 Days #28 tablet 12/23/18 Nicotine 21Mg/24Hr Patch [Habitrol] 1 patch TRANSDERM DAILY 28 Days 12/23/18 #20 patch Venlafaxine HCl ER [Effexor XR] 150 mg PO DAILY 28 Days #28 12/23/18 cap.er.24h Ziprasidone [Geodon] 20 mg PO HS 28 Days #28 cap 12/23/18 Loratadine [Claritin] 10 mg PO DAILY PRN #30 tab 12/26/18 QUEtiapine [SEROquel] 25 mg PO DAILY #30 tab 12/26/18 QUEtiapine [SEROquel] 100 mg PO HS #30 tab 12/26/18 hydrOXYzine pamoate [Vistaril] 25 mg PO QID PRN #120 cap 12/26/18 metroNIDAZOLE [Flagyl] 500 mg PO BID #14 tab 12/26/18 Famotidine [Pepcid] 20 mg PO BID #14 tablet 06/11/21 Amoxicillin 875 mg PO Q12HR #14 tablet 12/04/21 Ofloxacin 0.3% Otic Soln [Floxin 10 drops RIGHT EAR DAILY 7 Days 12/04/21 0.3% Otic Soln] #10 ml Allergies Allergy/AdvReac Type Severity Reaction Status Date / Time Bleach (Sodium Hypochlorite) Allergy Rash/Hives Verified 12/04/21 00:03 Review of Systems ROS Statement: Those systems with pertinent positive or pertinent negative responses have been documented in the HPI. ROS Other: All systems not noted in ROS Statement are negative. Past Medical History Past Medical History: GERD/Reflux, Thyroid Disorder Additional Past Medical History / Comment(s): murmur, RA, back pain, LOW VITAMIN D, LOW BLOOD SUGAR, parathyroid tumor, Terantina Tumor right lower abd History of Any Multi-Drug Resistant Organisms: None Reported Past Surgical History: Adenoidectomy, Tonsillectomy, Tubal Ligation Additional Past Surgical History / Comment(s): oopherectomy, facial reconstruction, Past Psychological History: Anxiety, Bipolar, Depression Smoking Status: Current every day smoker Past Alcohol Use History: None Reported Past Drug Use History: None Reported, Marijuana, Methamphetamine General Exam Limitations: no limitations General appearance: alert, in no apparent distress Head exam: Present: atraumatic, normocephalic, normal inspection Eye exam: Present: normal appearance, PERRL, EOMI. Absent: scleral icterus, conjunctival injection, periorbital swelling ENT exam: Present: other (left ear has open external ear canal without exudate. TM jimenez and shiny. Right TM is red, bulging. Canal is stenotic with creamy white discharge) Course Vital Signs 12/04/21 00:01 Temperature 97.9 F Pulse Rate 100 Respiratory 20 Rate Blood Pressure 129/65 O2 Sat by Pulse 99 Oximetry Medical Decision Making - Medical Decision Making Upon arrival patient is placed into trauma 1. Physical exam demonstrates otitis media and otitis externa of the right ear. Patient is given a dose of Toradol. Ofloxacin eardrops are ordered as well as amoxicillin. Patient will be placed on amoxicillin and Toradol the outpatient setting. She is instructed to take Motrin and Tylenol for pain. Follow up with her primary care doctor in 2-4 days and return for any new or worsening symptoms. Patient discharged home in stable condition Disposition Clinical Impression: Otitis media, Otitis externa Disposition: HOME SELF-CARE Condition: Stable Instructions (If sedation given, give patient instructions): Swimmer's Ear (ED), Ear Infection (ED) Additional Instructions: Please use the eardrops and antibiotics as directed. Alternate taking Motrin and Tylenol for pain and return for any new or worsening symptoms Prescriptions: Amoxicillin 875 mg PO Q12HR #14 tablet Ofloxacin 0.3% Otic Soln [Floxin 0.3% Otic Soln] 10 drops RIGHT EAR DAILY 7 Days #10 ml Is patient prescribed a controlled substance at d/c from ED?: No Referrals: None,Stated [Primary Care Provider] - 1-2 days Time of Disposition: 01:05
== END 2021-12-04 01:34 | disposition home or self-care (01) ==
LOC: EC
DX: H60.91 Unspecified otitis externa, right ear (principal); K21.9 Gastro-esophageal reflux disease without esophagitis; E03.9 Hypothyroidism, unspecified; F17.200 Nicotine dependence, unspecified, uncomplicated; F41.9 Anxiety disorder, unspecified; F31.9 Bipolar disorder, unspecified; F12.90 Cannabis use, unspecified, uncomplicated; F15.10 Other stimulant abuse, uncomplicated; Z79.899 Other long term (current) drug therapy
CPT/HCPCS: 99282; 96372; J1885

== ENCOUNTER → 2022-07-09 | Outpatient (CLI) | payer OTHER ==
--- NOTE | 2022-07-10 06:21 | US ---
EXAMINATION TYPE: US thyroid st tissue head/neck DATE OF EXAM: 07/09/2022 COMPARISON: CT cervical spine 2015 CLINICAL INDICATION: Female, 37 years old with history of E04.1 NONTOXIC SINGLE THYROID NODULE; Weigh t gain. Difficulty swallowing GLAND SIZE: Right Lobe: 5.2 x 1.2 x 1.8cm Overall Parenchyma: homogenous Left Lobe: 4.7 x 1.3 x 1.6cm Overall Parenchyma: homogeneous Isthmus Thickness: 0.4cm NODULES RIGHT: # of nodules measured on right: 0 LEFT: # of nodules measured on left: 0 ISTHMUS: # of nodules measured in the isthmus: 0 Bilateral neck scanned, no evidence of lymphadenopathy. Homogeneous normal-sized thyroid without discrete nodule. IMPRESSION: As above. Unremarkable study.
== END | disposition home or self-care (01) ==
LOC: RADUSWWP 16:00
PROVIDERS: ATTEND Family Medicine
DX: E04.1 Nontoxic single thyroid nodule (principal)
CPT/HCPCS: 76536

== ENCOUNTER 2023-05-04 20:03 | Emergency (ER) | payer OTHER ==
[2023-05-04 20:19] VITALS: BP 129/93; PULSE 110; TEMP 97.8
--- NOTE | 2023-05-04 20:21 | ED ---
ENT HPI - General Chief complaint: Dental/Oral Stated complaint: L side facial/neck swelliing Time Seen by Provider: 05/04/23 20:08 Source: patient Mode of arrival: ambulatory Limitations: no limitations - History of Present Illness Initial comments: 38-year-old female presenting with chief complaint of dental pain. Patient has been having left-sided dental pain for 3 days. She was seen at [facility] yesterday and started on clindamycin. She states that she has been taking Motrin and Tylenol but she is still unable to get the pain under control. She admits to some swelling on the left side of the face. No difficulty breathing or swallowing. No drooling or voice change. No fevers. She does have a dentist, states that she has been having difficulties getting into the office. - Related Data Previous Rx's Medication Instructions Recorded Benztropine Mesylate [Cogentin] 1 mg PO BID 56 Days #28 tab 12/23/18 Melatonin 5 mg PO HS 28 Days #28 tablet 12/23/18 Nicotine 21Mg/24Hr Patch [Habitrol] 1 patch TRANSDERM DAILY 28 Days 12/23/18 #20 patch Venlafaxine HCl ER [Effexor XR] 150 mg PO DAILY 28 Days #28 12/23/18 cap.er.24h Ziprasidone [Geodon] 20 mg PO HS 28 Days #28 cap 12/23/18 Loratadine [Claritin] 10 mg PO DAILY PRN #30 tab 12/26/18 QUEtiapine [SEROquel] 25 mg PO DAILY #30 tab 12/26/18 QUEtiapine [SEROquel] 100 mg PO HS #30 tab 12/26/18 hydrOXYzine pamoate [Vistaril] 25 mg PO QID PRN #120 cap 12/26/18 metroNIDAZOLE [Flagyl] 500 mg PO BID #14 tab 12/26/18 Famotidine [Pepcid] 20 mg PO BID #14 tablet 06/11/21 Amoxicillin 875 mg PO Q12HR #14 tablet 12/04/21 Ofloxacin 0.3% Otic Soln [Floxin 10 drops RIGHT EAR DAILY 7 Days 12/04/21 0.3% Otic Soln] #10 ml HYDROcodone/APAP 7.5-325MG [[place] 1 tab PO Q6HR PRN 3 Days #12 tab 05/04/23 7.5325] Allergies Allergy/AdvReac Type Severity Reaction Status Date / Time Bleach (Sodium Hypochlorite) Allergy Rash/Hives Verified 08/22/22 18:33 Review of Systems ROS Statement: Those systems with pertinent positive or pertinent negative responses have been documented in the HPI. ROS Other: All systems not noted in ROS Statement are negative. Past Medical History Past Medical History: GERD/Reflux, Thyroid Disorder Additional Past Medical History / Comment(s): murmur, RA, back pain, LOW VITAMIN D, LOW BLOOD SUGAR, parathyroid tumor, Terantina Tumor right lower abd History of Any Multi-Drug Resistant Organisms: None Reported Past Surgical History: Adenoidectomy, Tonsillectomy, Tubal Ligation Additional Past Surgical History / Comment(s): oopherectomy, facial reconstruction, Past Psychological History: Anxiety, Bipolar, Depression Smoking Status: Former smoker Past Alcohol Use History: None Reported Past Drug Use History: None Reported, Marijuana, Methamphetamine General Exam Limitations: no limitations General appearance: alert, anxious (The patient is crying) Head exam: Present: atraumatic, normocephalic Eye exam: Present: normal appearance, EOMI ENT exam: Present: normal oropharynx, mucous membranes moist Neck exam: Present: normal inspection. Absent: tenderness, meningismus Respiratory exam: Absent: respiratory distress Neurological exam: Present: alert, oriented X3 Psychiatric exam: Present: normal affect Skin exam: Present: warm, dry Course Vital Signs 05/04/23 05/04/23 20:05 20:40 Temperature 97.8 F Pulse Rate 110 H Respiratory 18 16 Rate Blood Pressure 129/93 O2 Sat by Pulse 97 Oximetry Medical Decision Making - Medical Decision Making Was pt. sent in by a medical professional or institution (, PA, ETYMOLOGY PROFESSOR, urgent care, hospital, or penitentiary...) When possible be specific @ -No Did you speak to anyone other than the patient for history (EMS, parent, family, police, friend...)? What history was obtained from this source @ -No Did you review nursing and triage notes (agree or disagree)? Why? @ -I reviewed and agree with nursing and triage notes Were old charts reviewed (outside hosp., previous admission, EMS record, old EKG, old radiological studies, urgent care reports/EKG's, penitentiary records)? Report findings @ -No old charts were reviewed Differential Diagnosis (chest pain, altered mental status, abdominal pain women, abdominal pain men, vaginal bleeding, weakness, fever, dyspnea, syncope, headache, dizziness, GI bleed, back pain, seizure, CVA, palpatations, mental health, musculoskeletal)? @ -Differential includes toothache, dental abscess, Chandler's angina, this is not an all-inclusive list EKG interpreted by me (3pts min.). @ -As above X-rays interpreted by me (1pt min.). @ -None done CT interpreted by me (1pt min.). @ -None done U/S interpreted by me (1pt. min.). @ -None done What testing was considered but not performed or refused? (CT, X-rays, U/S, labs)? Why? @ -None What meds were considered but not given or refused? Why? @ -None Did you discuss the management of the patient with other professionals (professionals i.e. , PA, ETYMOLOGY PROFESSOR, lab, RT, psych nurse, administrator social welfare, production line welder, teacher, chief executive officer, case management associate)? Give summary @ -No Was smoking cessation discussed for >3mins.? @ -No Was critical care preformed (if so, how long)? @ -No Were there social determinants of health that impacted care today? How? (Homelessness, low income, unemployed, alcoholism, drug addiction, transportation, low edu. Level, literacy, decrease access to med. care, correction, rehab)? @ -No Was there de-escalation of care discussed even if they declined (Discuss DNR or withdrawal of care, Hospice)? DNR status @ -No What co-morbidities impacted this encounter? (DM, HTN, Smoking, COPD, CAD, Cancer, CVA, ARF, Chemo, Hep., AIDS, mental health diagnosis, sleep apnea, morbid obesity)? @ -None Was patient admitted / discharged? Hospital course, mention meds given and route, prescriptions, significant lab abnormalities, going to OR and other pertinent info. @ -38-year-old female presenting with chief complaint of dental pain. She on clindamycin for dental abscess. She is trying to get in with her dentist. On exam there is some mild swelling to the left side of the face. She has no voice changes, drooling, or difficulty breathing. No brawny induration. No midline shift. No evidence of drainable abscess. She is instructed to continue her antibiotics and is provided with pain medication. Follow-up with dentist. Discharged home. Follow-up with PCP. Report back to ER with any new or worsening symptoms. Discussed return parameters and answered all questions. Patient conveyed verbal understanding and agreed to the plan. I discussed this case in detail with my attending Dr. Herndon Undiagnosed new problem with uncertain prognosis? @ -No Drug Therapy requiring intensive monitoring for toxicity (Heparin, Nitro, Insulin, Cardizem)? @ -No Were any procedures done? @ -No Diagnosis/symptom? @ -toothache Acute, or Chronic, or Acute on Chronic? @ -Acute Uncomplicated (without systemic symptoms) or Complicated (systemic symptoms)? @ -Uncomplicated Side effects of treatment? @ -No Exacerbation, Progression, or Severe Exacerbation? @ -No Poses a threat to life or bodily function? How? (Chest pain, [place], [place], pneumonia, PE, COPD, DKA, ARF, appy, cholecystitis, CVA, Diverticulitis, Homicidal, Suicidal, threat to staff... and all critical care pts) @ -No Disposition Clinical Impression: Toothache Disposition: HOME SELF-CARE Condition: Good Instructions (If sedation given, give patient instructions): Toothache (ED) Additional Instructions: Follow-up with your dentist. Report back to ER with any new or worsening symptoms. Continue taking your antibiotic as prescribed. Prescriptions: HYDROcodone/APAP 7.5-325MG [[place] 7.5-325] 1 tab PO Q6HR PRN 3 Days #12 tab PRN Reason: Pain Is patient prescribed a controlled substance at d/c from ED?: No Referrals: Yrn Car MD [Primary Care Provider] - 1-2 days Time of Disposition: 20:21
[2023-05-04] MEDS: HYDROcodone/APAP 7.5-325MG 1 EACH TAB PO ONE (20:24)
[2023-05-04] MEDS: KETOROLAC 15 MG/ML 1 ML VIAL IM STA (20:25)
[2023-05-04 20:50] VITALS: RESP 16
== END 2023-05-04 20:41 | disposition home or self-care (01) ==
LOC: SUPCPDRO 20:03 → EC 20:03
DX: K08.89 Other specified disorders of teeth and supporting structures (principal); Z87.891 Personal history of nicotine dependence; Z88.8 Allergy status to other drugs, medicaments and biological substances
CPT/HCPCS: 99283; 96372; J1885

== ENCOUNTER → 2023-12-06 | Outpatient (CLI) | payer OTHER ==
--- NOTE | 2023-12-06 17:44 | US ---
EXAMINATION TYPE: US pelvic complete DATE OF EXAM: 12/06/2023 COMPARISON: Prior CT imaging. CLINICAL INDICATION: Female, 38 years old with history of N94.6 DYSMENORRHEA, UNSPECIFIED; bilat pelv ic pain TECHNIQUE: Transabdominal (TA) With grayscale and color Doppler imaging. FINDINGS: Date of LMP: 11/27/23 EXAM MEASUREMENTS: Uterus: 10.2x4.4x7.7 cm Endometrial Stripe: 1.1 cm Right Ovary: 2.8x2.3x2.6 cm Left Ovary: 3.9x1.7x2.6 cm 1. Uterus: Anteverted wnl 2. Endometrium: wnl 3. Right Ovary: wnl 4. Left Ovary: large dermoid again seen from CT 06/11/21 today measuring 7.8x7.6x4.8cm evaluation 5. Bilateral Adnexa: wnl 6. Posterior cul-de-sac: wnl IMPRESSION: 1. No evidence for acute process. 2. Left adnexal dermoid as seen on prior imaging. 3. Endometrium within normal limits for thickness. [facility], , 12/06/2023 5:42 PM
== END | disposition home or self-care (01) ==
LOC: RADUSWWP 16:05
PROVIDERS: ATTEND Family Medicine
DX: N94.6 Dysmenorrhea, unspecified (principal)
CPT/HCPCS: 76856

== ENCOUNTER 2024-08-18 13:00 | Emergency (ER) | payer OTHER ==
[2024-08-18 13:09] VITALS: RESP 18; TEMP 98
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
[2024-08-18] MEDS: ONDANSETRON 4 MG/2 ML VIAL IVP STA (14:12)
[2024-08-18] MEDS: MORPHINE SULFATE 4 MG/ML SYRINGE IVP STA (14:12)
[2024-08-18] MEDS: ORPHENADRINE 30 MG/ML 2 ML VIAL IVP STA (14:13)
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
[2024-08-18 16:22] VITALS: BP 114/70; PULSE 80
== END 2024-08-18 16:31 | disposition home or self-care (01) ==
LOC: EC 13:00
DX: S32.049A Unspecified fracture of fourth lumbar vertebra, initial encounter for closed fracture (principal); F17.290 Nicotine dependence, other tobacco product, uncomplicated; Z91.040 Latex allergy status; Z91.030 Bee allergy status; Z88.8 Allergy status to other drugs, medicaments and biological substances; V43.62XA Car passenger injured in collision with other type car in traffic accident, initial encounter
CPT/HCPCS: 93005; 72125; 70450; 71250; 74176; 99284; 96374; 96375 ×2; J2270; J2360; J2405